=== PATIENT | female | born 1990 | race Caucasian/White ===

== ENCOUNTER 2017-01-15 16:17 | Emergency (ER) | payer OTHER, MEDICAID ==
[2017-01-15 16:29] VITALS: BP 107/72
--- NOTE | 2017-01-15 16:52 | ER Document Report ---
ED Medical Screen (RME) - General Chief Complaint: Bloody Stools Stated Complaint: BLOOD IN STOOLS Time Seen by Provider: 01/15/17 16:50 Notes: Patient states she is having pressure around her rectum and has had bright red blood from the rectum today. She states she has had very little stool today but copious amounts of bright red blood. She denies any black or tarry stools. She did not have any bleeding prior to today. She states when she is she did have a history of easy bleeding secondary to thrombocytopenia. However she states she never had any treatment for this. Patient has had some mild abdominal cramping. No vaginal discharge or bleeding. No urinary problems. She has not been lightheaded or dizzy. She also states she has been unable to get a primary care physician so she has had her Mirena contraceptive in for approximately 5 years. - Related Data Allergies/Adverse Reactions: No Known Allergies Allergy (Unverified 01/15/17 16:27) Past Medical History Renal/ Medical History: Denies: Hx Peritoneal Dialysis Physical Exam - Vital signs Vitals: Temp Pulse BP Pulse Ox 98.4 F 94 107/72 99 01/15/17 16:27 01/15/17 16:27 01/15/17 16:27 01/15/17 16:27 Course - Vital Signs Vital signs: Temp Pulse Resp BP Pulse Ox 98.4 F 94 107/72 99 01/15/17 16:27 01/15/17 16:27 01/15/17 16:27 01/15/17 16:27
[2017-01-15 17:48] LABS: ABSOLUTE BASOPHILS # (AUTO) 0.1 10^3/uL (0.0-0.2); ABSOLUTE EOSINOPHILS # (AUTO) 0.1 10^3/uL (0.0-0.6); ABSOLUTE LYMPHOCYTES (AUTO) 1.7 10^3/uL (0.5-4.7); ABSOLUTE MONOCYTES (AUTO) 0.4 10^3/uL (0.1-1.4); ABSOLUTE NEUT (AUTO) 3.3 10^3/uL (1.7-8.2); BASOPHILS % (AUTO) 1.1 % (0-2); EOSINOPHILS % (AUTO) 1.6 % (0-6); HEMOGLOBIN 15.8 g/dL (12.0-15.5); HGB HCT DIFFERENCE 2.4; LYMPHOCYTES % (AUTO) 29.6 % (13-45); MEAN CORPUSCULAR HEMOGLOBIN 31.8 pg (27.0-33.4); MEAN CORPUSCULAR VOLUME 91 fl (80-97); MONOCYTES % (AUTO) 7.6 % (3-13); RED BLOOD COUNT 4.95 10^6/uL (3.72-5.28); SEGMENTED NEUTROPHILS % (AUTO) 60.1 % (42-78); WHITE BLOOD COUNT 5.6 10^3/uL (4.0-10.5)
[2017-01-15 17:50] LABS: APPEARANCE,URINE SLIGHTLY-CLOUDY; BILIRUBIN,URINE NEGATIVE (NEGATIVE); GLUCOSE, URINE NEGATIVE (NEGATIVE); KETONES,URINE NEGATIVE (NEGATIVE); LEUKOCYTE ESTERASE,URINE SMALL (NEGATIVE); NITRITE,URINE NEGATIVE (NEGATIVE); PROTEIN,URINE NEGATIVE (NEGATIVE); URINE SPECIFIC GRAVITY 1.019
[2017-01-15 18:04] LABS: ALANINE AMINOTRANSFERASE 25 U/L (9-52); ALBUMIN 4.7 g/dL (3.5-5.0); ALKALINE PHOSPHATASE 53 U/L (38-126); ANION GAP 12 (5-19); ASPARTATE AMINO TRANSFERASE 19 U/L (14-36); BILIRUBIN,DIRECT 0.3 mg/dL (0.0-0.4); BLOOD UREA NITROGEN 12 mg/dL (7-20); CALCIUM 9.9 mg/dL (8.4-10.2); CARBON DIOXIDE 30 mmol/L (22-30); CHLORIDE 102 mmol/L (98-107); CREATININE RESULT 0.73 mg/dL (0.52-1.25); GLUCOSE 88 mg/dL (75-110); POTASSIUM 4.3 mmol/L (3.6-5.0); SODIUM 143.7 mmol/L (137-145); TOTAL PROTEIN 7.8 g/dL (6.3-8.2)
--- NOTE | 2017-01-15 19:43 | ER Document Report ---
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 Patient states that the blood proceeded the stool. Patient states that she has issues with constipation and only has 2 bowel movements per month. Patient states that she was being seen by GI and had an endoscopy and colonoscopy performed which was unremarkable per patient. Patient states that she then lost her insurance and has not been back for further evaluation. Patient states that she was placed on a medication meant to aide peristalsis. patient states that otherwise she is eating and drinking without any difficulties. Patient states that she also has a history of internal hemorrhoids. Patient states that she does have pain at the rectal area, but no itching. Denies any recent illness or antibiotic use. Denies any drug allergies. Denies any headache, fever, URI, sore throat, chest pain, palpitations, syncope, cough, shortness of breath, wheeze, dyspnea, abdominal pain, nausea/vomiting/diarrhea, urinary retention, dysuria, hematuria, vaginal discharge/odor/bleeding, back pain, loss of control of bowel or bladder, numbness/tingling, saddle anesthesia, muscle paralysis/weakness, or rash. - Related Data Allergies/Adverse Reactions: No Known Allergies Allergy (Unverified 01/15/17 16:27) Past Medical History - Social History Smoking Status: Never Smoker Family History: Reviewed & Not Pertinent Renal/ Medical History: Denies: Hx Peritoneal Dialysis Review of Systems - Review of Systems Notes: REVIEW OF SYSTEMS: CONSTITUTIONAL : Denies fever, chills, or sweats. Denies recent illness. EENT: Denies eye, ear, throat, or mouth pain or symptoms. Denies nasal or sinus congestion or discharge. Denies throat, tongue, or mouth swelling or difficulty swallowing. CARDIOVASCULAR: Denies chest pain. Denies palpitations or racing or irregular heart beat. Denies ankle edema. RESPIRATORY: Denies cough, cold, or chest congestion. Denies shortness of breath, difficulty breathing, or wheezing. GASTROINTESTINAL: see hpi GENITOURINARY: Denies difficulty urinating, painful urination, burning, frequency, blood in urine, or discharge. FEMALE GENITOURINARY: Denies vaginal bleeding, heavy or abnormal periods, irregular periods. Denies vaginal discharge or odor. MUSCULOSKELETAL: Denies back or neck pain or stiffness. Denies joint pain or swelling. SKIN: Denies rash, lesions or sores. NEUROLOGICAL: Denies confusion or altered mental status. Denies passing out or loss of consciousness. Denies dizziness or lightheadedness. Denies headache. Denies weakness or paralysis or loss of use of either side. Denies problems with gait or speech. Denies sensory loss, numbness, or tingling. ALL OTHER SYSTEMS REVIEWED AND NEGATIVE. Dictation was performed using [employer] voice recognition software Physical Exam - Vital signs Vitals: Temp Pulse BP Pulse Ox 98.4 F 94 107/72 99 01/15/17 16:27 01/15/17 16:27 01/15/17 16:27 01/15/17 16:27 Notes: PHYSICAL EXAMINATION: GENERAL: Well-appearing, well-nourished and in no acute distress. a&ox4. Pt moving around w/o any discomfort. HEAD: Atraumatic, normocephalic. EYES: Pupils equal round and reactive to light, extraocular movements intact, sclera anicteric, conjunctiva are normal. ENT: Nares patent and without discharge. oropharynx clear without exudates. No tonsilar hypertrophy or erythema. Moist mucous membranes. No sinus tenderness. NECK: Normal range of motion, supple without lymphadenopathy LUNGS: Breath sounds clear to auscultation bilaterally and equal. No wheezes rales or rhonchi. HEART: Regular rate and rhythm without murmurs, rubs, gallops. ABDOMEN: Soft, nontender, nondistended abdomen. No guarding, no rebound. No masses appreciated. Normal bowel sounds present. No CVA tenderness bilaterally. Rectal: small nonthrombosed external hemorrhoid that is tender to touch. No obvious fissure. Tenderness elicited corresponds to pain described. No obvious blood noted on ORSA or impaction. Guiac obtained. Musculoskeletal: FROM to passive/active. Strength 5+/5. Extremities: No cyanosis, clubbing, or edema b/l. Peripheral pulses 2+. Capillary refill less than 3 seconds. NEUROLOGICAL: Normal speech, normal gait. Normal sensory, motor exams PSYCH: Normal mood, normal affect. SKIN: Warm, Dry, normal turgor, no rashes or lesions noted. Course - Re-evaluation Re-evalutation: 01/15/17 21:17 Patient is an afebrile, well-hydrated, 26-year-old female who presents to the ED with an external hemorrhoid. Vitals are stable. PE is otherwise unremarkable. CBC, CMP, urinalysis, urine unremarkable. Acute abdomen series was unremarkable for any acute pathology. There was no impaction on physical exam. Guaiac stool negative. Low suspicion/risk for acute appendicitis, bowel obstruction, acute cholecystitis, acute cholangitis, perforated diverticulitis, incarcerated hernia, pancreatitis, perforated ulcer, peritonitis, sepsis, pelvic inflammatory disease, ectopic , tubo- ovarian abscess, ovarian torsion, or other systemic emergent condition at this time. Patient is aware that her condition can change from initial presentation and she needs to monitor symptoms closely and seek medical attention if any acute changes. I will send her home with a prescription for anusol/Lido. Conservative measures otherwise for symptoms. Recheck with your PCM in 2-3 days. Consider consult with a barrel rifler button. Return to the ED with any worsening/concerning symptoms otherwise as reviewed in discharge. Patient is in agreement. - Vital Signs Vital signs: Temp Pulse Resp BP Pulse Ox 98.4 F 94 107/72 99 01/15/17 16:27 01/15/17 16:27 01/15/17 16:27 01/15/17 16:27 - Laboratory Result Diagrams: 01/15/17 17:20 01/15/17 17:20 Laboratory results interpreted by me: 01/15/17 01/15/17 17:20 17:20 Hgb 15.8 H Urine Blood SMALL H Urine Urobilinogen 4.0 H Ur Leukocyte Esterase SMALL H Discharge - Discharge Clinical Impression: External hemorrhoids without complication Condition: Stable Disposition: HOME, SELF-CARE Instructions: HC Hemorrhoid Cream ([facility]), Hemorrhoids ([facility]) Additional Instructions: Maintain adequate fluid and food intake Increase fiber intake tylenol if needed Monitor for any worsening symptoms Make sure you are staying hydrated enough to urinate and have normal BM's Recheck with your PCM in 2-3 days Consider consult with Gastroenterology for ongoing/worsening symptoms Return to the ED with any worsening symptoms and/or development of fever, headache, chest pain, palpitations, syncope, shortness of breath, trouble breathing, abdominal pain, n/v/d, blood in stool/urine, weakness, or other worsening symptoms that are concerning to you. Prescriptions: Hydrocortisone Acetate [Anusol Hc 25 mg Supp.rect] 1 supp.rect MD DAILY PRN #10 supp.rect PRN Reason: Referrals: KATIE LONG MD [ACTIVE STAFF] - Follow up as needed [facility] [Provider Group] - Follow up as needed
--- NOTE | 2017-01-15 20:14 | RADIOLOGY REPORT (SQ) ---
EXAM DESCRIPTION: ACUTE ABDOMEN SERIES COMPLETED DATE/TIME: 01/15/2017 7:54 pm REASON FOR STUDY: constipation COMPARISON: None. NUMBER OF VIEWS: Three views. TECHNIQUE: Frontal chest, supine abdomen and upright/decubitus abdomen radiographic images acquired. LIMITATIONS: None. FINDINGS: CHEST: Lungs clear of infiltrates. FREE AIR: None. No abnormal gas collections. BOWEL GAS PATTERN: Nonobstructive pattern. No dilated loops or air fluid levels. CALCIFICATIONS: No suspicious calcifications. HARDWARE: None in the abdomen. SOFT TISSUES: No gross mass or suggestion of organomegaly. BONES: No acute fracture. No worrisome bone lesions. OTHER: No other significant finding. IMPRESSION: NO RADIOGRAPHIC EVIDENCE FOR ACUTE ABDOMINAL DISEASE. TECHNICAL DOCUMENTATION: JOB ID: [id number] [employer]- All Rights Reserved
[2017-01-15] MEDS ORDERED: LIDOCAINE 2% JELLY 30 ML TUBE TOP ONE (20:39)
[2017-01-15] MEDS ORDERED: LIDOCAINE 2% VISCOUS SOLN 20 ML UDCUP PO ONE (20:54)
== END 2017-01-15 21:36 | disposition home or self-care (01) ==
LOC: ER 16:17
DX: K64.4 Residual hemorrhoidal skin tags (principal); K92.1 Melena; K59.00 Constipation, unspecified; K62.89 Other specified diseases of anus and rectum
CPT/HCPCS: 99283; 36415; 85025; 82272; 81025; 80053; 81001; 74022; J3490

== ENCOUNTER 2017-06-05 09:24 | Emergency (ER) | payer OTHER, MEDICAID ==
--- NOTE | 2017-06-05 10:09 | ER Document Report ---
HPI - HPI Patient complains to provider of: Sore throat body aches fever Onset: Other - 2 days Onset/Duration: Gradual Pain Level: 3 Context: 26-year-old female non-smoker son was diagnosed with strep on June 06 and she has developed body aches fever and sore throat. Occasional cough. No chest pain shortness of breath or abdominal pain. Associated Symptoms: None Exacerbated by: Other - Swallowing Relieved by: Denies - ROS ROS below otherwise negative: Yes Systems Reviewed and Negative: Yes All other systems reviewed and negative - REPRODUCTIVE LMP: mirena Past Medical History - General Information source: Patient - Social History Smoking Status: Never Smoker Frequency of alcohol use: None Drug Abuse: None Occupation: [employer] Lives with: Family Family History: Reviewed & Not Pertinent - Medical History Medical History: Negative Renal/ Medical History: Denies: Hx Peritoneal Dialysis Surgical Hx: Negative Vertical Provider Document - CONSTITUTIONAL Agree With Documented VS: Yes Exam Limitations: No Limitations General Appearance: No Apparent Distress - INFECTION CONTROL TRAVEL OUTSIDE OF THE [place] IN LAST 30 DAYS: No - HEENT HEENT: Normocephalic, Pharyngeal Erythema - minimal. negative: Tympanic Membrane Red - NECK Neck: Supple, Lymphadenopathy-Left - ant, Lymphadenopathy-Right - Anterior - RESPIRATORY Respiratory: Breath Sounds Normal, No Respiratory Distress O2 Sat by Pulse Oximetry: 100 - CARDIOVASCULAR Cardiovascular: Regular Rate, Regular Rhythm - MUSCULOSKELETAL/EXTREMETIES Musculoskeletal/Extremeties: MAEW - NEURO Level of Consciousness: Awake, Alert - DERM Integumentary: Warm, Dry, No Rash Course - Vital Signs Vital signs: Temp Pulse Resp BP Pulse Ox 98.6 F 93 18 107/73 100 06/05/17 09:38 06/05/17 09:38 06/05/17 09:38 06/05/17 09:38 06/05/17 09:38 Discharge - Discharge Clinical Impression: Sore throat Condition: Good Disposition: HOME, SELF-CARE Instructions: Acetaminophen, Anti-Inflammatory Medication ([facility]), Penicillin V K ([facility]) Additional Instructions: Plenty of fluids Penicillin until it is gone Tylenol Motrin If the rapid strep is negative they will do a throat culture the takes 48 hours to be resulted. Return to the emergency room if symptoms worsen Prescriptions: Ibuprofen [Motrin 800 mg Tablet] 800 mg PO Q8HP PRN #30 tablet PRN Reason: Penicillin V Potassium [Penicillin Vk 500 mg Tablet] 500 mg PO QID #40 tablet Forms: Return to Work
[2017-06-05 11:10] VITALS: BP 104/67
== END 2017-06-05 11:10 | disposition home or self-care (01) ==
LOC: ER 09:24
DX: J02.9 Acute pharyngitis, unspecified (principal); M79.1 Myalgia; R50.9 Fever, unspecified; R05 Cough
CPT/HCPCS: 87070; 87880; 99283

== ENCOUNTER 2017-08-07 22:15 | Emergency (ER) | payer MEDICAID, OTHER ==
--- NOTE | 2017-08-07 22:35 | ER Document Report ---
ED GI/ - General Chief Complaint: Abdominal Pain Stated Complaint: ABDOMINAL PAIN Time Seen by Provider: 08/07/17 22:35 Mode of Arrival: Ambulatory Information source: Patient TRAVEL OUTSIDE OF THE [place] IN LAST 30 DAYS: No - HPI Patient complains to provider of: Abdominal pain, Hematuria, Vaginal bleeding Onset: This morning Timing/Duration: Sudden Quality of pain: Cramping Severity at maximum: Severe Severity in ED: Mild Context: denies: Bad food, Lifting, Out of the country travel, , Recent trauma Location: LLQ, Left flank Vaginal bleeding (Compared to normal period): Heavier - ONE EPISODE, NOW RESOLVED Menstrual period history: Abnormal - HAS MERENA Sexual history: Active Associated symptoms: Hematuria, Nausea, Urinary urgency. denies: Chills, Diarrhea, Fever, Vomiting Exacerbated by: Denies Relieved by: Denies Similar symptoms previously: Yes - ONCE, WITH "RUPTURED CYST" Recently seen / treated by doctor: No - Related Data Allergies/Adverse Reactions: No Known Allergies Allergy (Unverified 01/15/17 16:27) Past Medical History - General Information source: Patient - Social History Smoking Status: Unknown if Ever Smoked Lives with: Spouse/Significant other Family History: Reviewed & Not Pertinent Patient has suicidal ideation: No Patient has homicidal ideation: No - Past Medical History Cardiac Medical History: Reports: None Pulmonary Medical History: Reports: None EENT Medical History: Reports: None Neurological Medical History: Reports: None Endocrine Medical History: Reports: None Renal/ Medical History: Reports: None. Denies: Hx Peritoneal Dialysis Malignancy Medical History: Reports: None GI Medical History: Reports: None Musculoskeltal Medical History: Reports None Psychiatric Medical History: Reports: None Surgical Hx: Negative Review of Systems - Review of Systems Constitutional: No symptoms reported EENT: No symptoms reported Cardiovascular: No symptoms reported Respiratory: No symptoms reported Gastrointestinal: See HPI Genitourinary: See HPI Female Genitourinary: See HPI Musculoskeletal: No symptoms reported Skin: No symptoms reported Neurological/Psychological: No symptoms reported Physical Exam - Vital signs Vitals: Temp Pulse BP Pulse Ox 99.0 F 76 112/73 99 08/07/17 22:30 08/07/17 22:30 08/07/17 22:30 08/07/17 22:30 Interpretation: No: Tachycardic, Tachypneic, Febrile - General General appearance: Appears well, Alert In distress: None - HEENT Head: Normocephalic Eyes: Normal Conjunctiva: Normal Ears: Normal Nasal: Normal Mouth/Lips: Normal Mucous membranes: Normal - Respiratory Respiratory status: No respiratory distress - Cardiovascular Rhythm: Regular - Abdominal Inspection: Normal Distension: No distension Bowel sounds: Hypoactive Tenderness: Tender - MILD, LLQ AND SP - Extremities General upper extremity: Normal inspection General lower extremity: Normal inspection - Neurological Neuro grossly intact: Yes Cognition: Normal Orientation: AAOx4 - Psychological Associated symptoms: Normal affect, Normal mood - Skin Skin Temperature: Warm Skin Moisture: Dry Skin Color: Normal Skin Turgor: Elastic Course - Vital Signs Vital signs: Temp Pulse Resp BP Pulse Ox 99.0 F 76 112/73 99 08/07/17 22:30 08/07/17 22:30 08/07/17 22:30 08/07/17 22:30 - Laboratory Result Diagrams: 08/07/17 23:00 08/07/17 23:00 Laboratory results interpreted by me: 08/07/17 08/07/17 23:00 23:11 AST 13 L Urine Protein 100 H Urine Blood LARGE H Urine Urobilinogen 2.0 H Discharge - Discharge Clinical Impression: Flank pain Hematuria Qualifiers: Hematuria type: gross Qualified Code(s): R31.0 - Gross hematuria Condition: Stable Disposition: HOME, SELF-CARE Instructions: Antinausea Medication ([facility]), Kidney Stone ([facility]), Oral Narcotic Medication ([facility]), Toradol Injection ([facility]) Additional Instructions: REST, DRINK PLENTY OF FLUIDS. YOU MAY TAKE ZOFRAN FOR NAUSEA CONTROL IF NEEDED. YOU MAY TAKE NORCO FOR PAIN CONTROL IF NEEDED. FOLLOW UP WITH YOUR PRIMARY CARE PROVIDER OR RETURN TO E.R. IF NOT IMPROVED IN 48 HOURS, OR SOONER IF YOU GET WORSE IN ANY WAY. Prescriptions: Hydrocodone/Acetaminophen [[place] 5-325 mg Tablet] 1 tab PO Q4HP PRN #14 tablet PRN Reason: For Pain
[2017-08-07] MEDS ORDERED: ONDANSETRON HCL INJ/PF 4 MG/2 ML SDV IV ONE (22:44)
[2017-08-07] MEDS ORDERED: HYDROMORPHONE HCL INJ/PF 2 MG/ML AMPULE IV ONE (22:44)
[2017-08-07 23:17] LABS: ABSOLUTE BASOPHILS # (AUTO) 0.1 10^3/uL (0.0-0.2); ABSOLUTE EOSINOPHILS # (AUTO) 0.1 10^3/uL (0.0-0.6); ABSOLUTE LYMPHOCYTES (AUTO) 2.2 10^3/uL (0.5-4.7); ABSOLUTE MONOCYTES (AUTO) 0.7 10^3/uL (0.1-1.4); ABSOLUTE NEUT (AUTO) 3.2 10^3/uL (1.7-8.2); BASOPHILS % (AUTO) 1.1 % (0-2); EOSINOPHILS % (AUTO) 2.3 % (0-6); HEMATOCRIT 41.3 % (36.0-47.0); HEMOGLOBIN 14.5 g/dL (12.0-15.5); LYMPHOCYTES % (AUTO) 35.4 % (13-45); MEAN CORPUSCULAR HEMOGLOBIN 31.9 pg (27.0-33.4); MEAN CORPUSCULAR HGB CONC 35.2 g/dL (32.0-36.0); MEAN CORPUSCULAR VOLUME 91 fl (80-97); MONOCYTES % (AUTO) 10.6 % (3-13); PLATELET COUNT 171 10^3/uL (150-450); RED BLOOD COUNT 4.56 10^6/uL (3.72-5.28); SEGMENTED NEUTROPHILS % (AUTO) 50.6 % (42-78); TOTAL CELLS COUNTED % (AUTO) 100 %; WHITE BLOOD COUNT 6.3 10^3/uL (4.0-10.5)
[2017-08-07 23:31] LABS: ALANINE AMINOTRANSFERASE 18 U/L (9-52); ALKALINE PHOSPHATASE 43 U/L (38-126); ANION GAP 8 (5-19); ASPARTATE AMINO TRANSFERASE 13 U/L (14-36); BILIRUBIN,DIRECT 0.2 mg/dL (0.0-0.4); BILIRUBIN,TOTAL 0.3 mg/dL (0.2-1.3); BLOOD UREA NITROGEN 11 mg/dL (7-20); CALCIUM 9.4 mg/dL (8.4-10.2); CARBON DIOXIDE 30 mmol/L (22-30); CHLORIDE 102 mmol/L (98-107); GLUCOSE 90 mg/dL (75-110); POTASSIUM 4.3 mmol/L (3.6-5.0); SODIUM 140.3 mmol/L (137-145); TOTAL PROTEIN 6.7 g/dL (6.3-8.2)
[2017-08-07 23:39] LABS: APPEARANCE,URINE CLOUDY; BILIRUBIN,URINE NEGATIVE (NEGATIVE); COLOR,URINE YELLOW; GLUCOSE, URINE NEGATIVE (NEGATIVE); KETONES,URINE NEGATIVE (NEGATIVE); LEUKOCYTE ESTERASE,URINE NEGATIVE (NEGATIVE); NITRITE,URINE NEGATIVE (NEGATIVE); PROTEIN,URINE 100 mg/dL (NEGATIVE); URINE SPECIFIC GRAVITY 1.026
[2017-08-08] MEDS ORDERED: KETOROLAC TROMETHAMINE INJ/PF 30 MG/1 ML SDV IV ONE (00:34)
[2017-08-08 01:27] VITALS: BP 110/70
--- NOTE | 2017-08-08 01:39 | RADIOLOGY REPORT (SQ) ---
US KIDNEYS / US RETROPERITONEAL and ULTRASOUND OF THE PELVIS Clinical history: Left flank pain with hematuria in a 26-year-old female. Comparison: None available. Technique: Ultrasound of the kidneys: Multiple sonographic images are taken of the kidneys and bladder using both grayscale and color Doppler. Ultrasound pelvis: Grayscale and color Doppler is performed of the pelvis using a transvaginal probe. Findings: ULTRASOUND OF THE KIDNEYS: Right kidney: The right kidney measures 10.7 x 5.1 x 5.2 cm. No hydronephrosis nor obstructing stone. Blood flow to the right kidney is within normal limits. Left kidney: The left kidney measures 10.4 x 5.5 x 4.1 cm. No hydronephrosis nor obstructing stone. Bladder: The bladder is only partially distended. Bilateral ureteral jets are visualized. ULTRASOUND PELVIS: Uterus: The cervix is closed measuring 2.7 cm. The uterus measures 8.8 x 5.1 x 5.9 cm. An IUD is seen overlying the endometrium. The endometrium measures 4 mm. No abnormal blood flow. Right ovary: The right ovary measures 3.4 x 4.2 x 4.6 m. Within the right ovary there is an anechoic area consistent with a cyst that measures 3.5 x 2.6 x 2.4 cm. No further follow-up is needed. Blood flow is demonstrated to the right ovary with both arterial and venous flow. Left ovary: The left ovary measures 2.5 x 4.7 x 2.5 cm. Arterial and venous blood flow is demonstrated. Impression: Ultrasound of the kidneys: Unremarkable ultrasound of the kidneys and bladder. Ultrasound pelvis: 1. IUD overlying the endometrium with a right ovarian cyst. No follow-up necessary as per guidelines below. 2. Otherwise unremarkable pelvic ultrasound. Recommendations for simple cyst1,2 Pre-menopause3 (< 50 yrs if LMP unknown): <5 cm: No f/u necessary >5cm - <10 cm: US f/u 6-12 weeks >10 cm: Prompt US 1. Recommendations based upon the 2013 ACR White Paper for the Management of Adnexal Incidental Findings, J Am Dorinda Radiol 2013;10:675-681 2. Excludes normal/benign findings such as ovarian calcifications w/o associated non-calcified mass, corpus lutein cyst, previously characterized cyst and cyst with documented stability in size and appearance for 2 years. 3. Includes cysts with layering hemorrhage 4. If internal hemorrhage suspected in cyst, US f/u 6-12 weeks
== END 2017-08-08 01:29 | disposition home or self-care (01) ==
LOC: ER 22:15
DX: R10.9 Unspecified abdominal pain (principal); R10.32 Left lower quadrant pain; R31.0 Gross hematuria; R11.0 Nausea; R39.15 Urgency of urination; N93.9 Abnormal uterine and vaginal bleeding, unspecified
CPT/HCPCS: 99284; 96374; 96375; 36415; 87086; 84703; 85025; 80053; 81001; 76770; 76830; 93976; J1885; J1170; J2405

== ENCOUNTER 2017-09-20 14:17 | Emergency (ER) | payer MEDICAID ==
[2017-09-20 15:42] LABS: APPEARANCE,URINE SLIGHTLY-CLOUDY; BILIRUBIN,URINE NEGATIVE (NEGATIVE); COLOR,URINE YELLOW; GLUCOSE, URINE NEGATIVE (NEGATIVE); KETONES,URINE 20 mg/dL (NEGATIVE); LEUKOCYTE ESTERASE,URINE TRACE (NEGATIVE); NITRITE,URINE NEGATIVE (NEGATIVE); PROTEIN,URINE NEGATIVE (NEGATIVE)
--- NOTE | 2017-09-20 16:35 | ER Document Report ---
ED GI/ - General Chief Complaint: Urinary Problem Stated Complaint: BLOOD IN URINE Time Seen by Provider: 09/20/17 15:22 Mode of Arrival: Ambulatory Information source: Patient Notes: Patient is a 26-year-old female with an IUD who presents to the ER today for abdominal cramping that began this morning, throughout her lower abdomen, worse on the left with blood in her urine that she also noticed this morning. Patient has a history of kidney stones and states that she does have some left flank pain but the pain is worse on the side and in the abdomen. Patient denies any burning with urination, fever, chills, nausea or vomiting. Patient states she has not had a menstrual cycle in 5 years. TRAVEL OUTSIDE OF THE [place] IN LAST 30 DAYS: No - Related Data Allergies/Adverse Reactions: No Known Allergies Allergy (Unverified 01/15/17 16:27) Past Medical History - General Information source: Patient - Social History Smoking Status: Unknown if Ever Smoked Family History: Reviewed & Not Pertinent Renal/ Medical History: Denies: Hx Peritoneal Dialysis Review of Systems - Review of Systems Constitutional: No symptoms reported EENT: No symptoms reported Cardiovascular: No symptoms reported Respiratory: No symptoms reported Gastrointestinal: See HPI Genitourinary: See HPI Female Genitourinary: See HPI Musculoskeletal: No symptoms reported Skin: No symptoms reported Hematologic/Lymphatic: No symptoms reported Neurological/Psychological: No symptoms reported Physical Exam - Vital signs Vitals: Temp Pulse Resp BP Pulse Ox 98.9 F 95 16 113/91 H 97 09/20/17 14:26 09/20/17 14:26 09/20/17 14:26 09/20/17 14:26 09/20/17 14:26 - Notes Notes: PHYSICAL EXAMINATION: GENERAL: Uncomfortable appearing, but in no acute distress. HEAD: Atraumatic, normocephalic. EYES: Pupils equal round and reactive to light, extraocular movements intact, sclera anicteric, conjunctiva are normal. NECK: Normal range of motion, supple without lymphadenopathy LUNGS: CTAB and equal. No wheezes rales or rhonchi. HEART: Regular rate and rhythm without murmurs ABDOMEN: Soft, suprapubic, left lower quadrant tenderness. No guarding, no rebound BACK: no vertebral tenderness, normal ROM GI/: Mild left CVA tenderness EXTREMITIES: Normal range of motion, no pitting edema. No cyanosis. NEUROLOGICAL: Cranial nerves grossly intact. Normal sensory/motor exams. PSYCH: Normal mood, normal affect. SKIN: Warm, Dry, normal turgor, no rashes or lesions noted Course - Re-evaluation Re-evalutation: 09/20/17 18:27 CT renal protocol reveals no active ureteral stones, multiple tiny kidney stones in both kidneys. Patient does have large hematuria and some white blood cells on her urinalysis today. Lab work is unremarkable with normal kidney function, negative test. Patient feels better after just sitting in the bed before any pain medication or fluids were given. Patient did receive IV Zofran and fluids here. We will send her home with Macrobid and ibuprofen. Pt describes menstrual type cramps to me. - Vital Signs Vital signs: Temp Pulse Resp BP Pulse Ox 98.9 F 95 16 113/91 H 97 09/20/17 14:26 09/20/17 14:26 09/20/17 14:26 09/20/17 14:26 09/20/17 14:26 - Laboratory Laboratory results interpreted by me: 09/20/17 15:05 Urine Ketones 20 H Urine Blood LARGE H Urine Urobilinogen 2.0 H Ur Leukocyte Esterase TRACE H Discharge - Discharge Clinical Impression: LLQ pain UTI (urinary tract infection) Qualifiers: Urinary tract infection type: site unspecified Hematuria presence: with hematuria Qualified Code(s): N39.0 - Urinary tract infection, site not specified Hematuria Qualifiers: Hematuria type: unspecified type Qualified Code(s): R31.9 - Hematuria, unspecified Condition: Stable Disposition: HOME, SELF-CARE Instructions: Nitrofurantoin ([facility]), Urinary Tract Infection ([facility]) Additional Instructions: Return immediately for any new or worsening symptoms. Follow up with primary care provider, call tomorrow to make followup appointment. Drink plenty of fluids. Prescriptions: Ibuprofen [Motrin 800 mg Tablet] 800 mg PO Q8H PRN #30 tab PRN Reason: Nitrofurantoin/Nitrofuran Mac [Macrobid 100 mg Capsule] 1 tab PO BID #20 capsule Forms: Return to Work
[2017-09-20] MEDS ORDERED: CEFTRIAXONE INJ 1000 MG VIAL IV ONE (16:36)
[2017-09-20] MEDS ORDERED: HYDROMORPHONE HCL INJ/PF 2 MG/ML AMPULE IV ONE (16:38)
[2017-09-20] MEDS ORDERED: NORMAL SALINE 1000 ML 1,000 ML IV ONE (16:38)
--- NOTE | 2017-09-20 17:23 | RADIOLOGY REPORT (SQ) ---
EXAM DESCRIPTION: CT LTD RENAL STONE PROTOCOL ON COMPLETED DATE/TIME: 09/20/2017 5:12 pm REASON FOR STUDY: llq pain, hematuria COMPARISON: None. TECHNIQUE: CT scan of the abdomen and pelvis performed without intravenous or oral contrast. Images reviewed with lung, soft tissue, and bone windows. Reconstructed coronal and sagittal MPR images revi ewed. All images stored on PACS. All CT scanners at this facility use dose modulation, iterative reconstruction, and/or weight based d osing when appropriate to reduce radiation dose to as low as reasonably achievable (ALARA). [facility]: Dose Right [facility]: CareDose [facility]: Dose Right [facility]: Teradose 4D [facility]: Smart [employer] RADIATION DOSE: CT Rad equipment meets quality standard of care and radiation dose reduction techniq ues were employed. CTDIvol: 4.9 mGy. DLP: 251 mGy-cm.mGy. LIMITATIONS: None. FINDINGS: LOWER CHEST: No significant findings. No nodules or infiltrates. NON-CONTRASTED LIVER, SPLEEN, ADRENALS: Evaluation limited by lack of IV contrast. No identified sign ificant masses. PANCREAS: No masses. No peripancreatic inflammatory changes. GALLBLADDER: No identified stones by CT criteria. No inflammatory changes to suggest cholecystitis. RIGHT KIDNEY AND URETER: No suspicious masses. Assessment limited by lack of IV contrast. Tiny calc terri in the mid and upper pole calyces. No hydronephrosis or hydroureter. LEFT KIDNEY AND URETER: No suspicious masses. Assessment limited by lack of IV contrast. Tiny calcu li in the mid and upper pole calices. No hydronephrosis or hydroureter. AORTA AND RETROPERITONEUM: No aneurysm. No retroperitoneal masses or adenopathy. BOWEL AND PERITONEAL CAVITY: No obvious masses or inflammatory changes. No free fluid. APPENDIX: Normal. PELVIS, BLADDER, AND ABDOMINAL WALL:No abnormal masses. IUD in the uterus. No free fluid. Bladder n ormal. BONES: No significant findings. OTHER: No other significant finding. IMPRESSION: TINY NONOBSTRUCTING CALYCEAL CALCULI IN BOTH KIDNEYS. NO URETERAL CALCULI. NO OTHER SI GNIFICANT OR ACUTE PROCESS IN THE ABDOMEN OR PELVIS. COMMENT: Quality ID # [id number]: Final reports with documentation of one or more dose reduction techniques (e.g., Automated exposure control, adjustment of the mA and/or kV according to patient size, use of iterative reconstruction technique) TECHNICAL DOCUMENTATION: JOB ID: [id number] [employer]- All Rights Reserved Reading location - IP/workstation name: [email or web address]
[2017-09-20 19:07] VITALS: BP 104/69
== END 2017-09-20 19:00 | disposition home or self-care (01) ==
LOC: ER 14:17
DX: N39.0 Urinary tract infection, site not specified (principal); R31.0 Gross hematuria; N20.0 Calculus of kidney; Z97.5 Presence of (intrauterine) contraceptive device
CPT/HCPCS: 99284; 51701; 96375; 96365; 87086; 81025; 81001; 76380; J1170; J0696; J7030

== ENCOUNTER 2017-10-21 20:22 | Emergency (ER) | payer MEDICAID ==
[2017-10-21 21:24] LABS: APPEARANCE,URINE SLIGHTLY-CLOUDY; BILIRUBIN,URINE NEGATIVE (NEGATIVE); COLOR,URINE YELLOW; GLUCOSE, URINE NEGATIVE (NEGATIVE); KETONES,URINE TRACE mg/dL (NEGATIVE); LEUKOCYTE ESTERASE,URINE MODERATE (NEGATIVE); NITRITE,URINE NEGATIVE (NEGATIVE); PROTEIN,URINE NEGATIVE (NEGATIVE)
--- NOTE | 2017-10-21 22:31 | ER Document Report ---
ED Medical Screen (RME) - General Chief Complaint: Urinary Problem Stated Complaint: ABDOMINAL PAIN Time Seen by Provider: 10/21/17 22:29 Mode of Arrival: Wheelchair Information source: Patient Notes: Patient is an otherwise healthy 26-year-old female who presents with chief complaint of bilateral low back pain and bilateral flank pain. Patient reports she was seen here approximately 1 month ago, diagnosed with multiple kidney stones bilaterally, and reports that she has not gotten any better. Patient reports that she has seen her primary care doctor and "nobody is doing anything ". Patient is taking Flomax daily. Patient unsure if she has passed kidney stones. Patient does report blood in her urine. Exam: CVA tenderness to left side. Mild tenderness to palpation to low abdomen bilaterally. I have greeted and performed a rapid initial assessment of this patient. A comprehensive ED assessment and evaluation of the patient, analysis of test results and completion of the medical decision making process will be conducted by additional ED providers. Dictation of this chart was performed using voice recognition software; therefore, there may be some unintended grammatical errors. TRAVEL OUTSIDE OF THE [place] IN LAST 30 DAYS: No - Related Data Allergies/Adverse Reactions: No Known Allergies Allergy (Unverified 01/15/17 16:27) Past Medical History Renal/ Medical History: Reports: Hx Kidney Stones. Denies: Hx Peritoneal Dialysis Physical Exam - Vital signs Vitals: Temp Pulse Resp BP Pulse Ox 98.2 F 85 18 124/87 H 96 10/21/17 21:03 10/21/17 21:03 10/21/17 21:03 10/21/17 21:03 10/21/17 21:03 Course - Vital Signs Vital signs: Temp Pulse Resp BP Pulse Ox 98.2 F 85 18 124/87 H 96 10/21/17 21:03 10/21/17 21:03 10/21/17 21:03 10/21/17 21:03 10/21/17 21:03 - Laboratory Laboratory results interpreted by me: 10/21/17 21:09 Urine Ketones TRACE H Urine Blood MODERATE H Urine Urobilinogen 4.0 H Ur Leukocyte Esterase MODERATE H
[2017-10-21 23:15] LABS: ABSOLUTE BASOPHILS # (AUTO) 0.1 10^3/uL (0.0-0.2); ABSOLUTE EOSINOPHILS # (AUTO) 0.1 10^3/uL (0.0-0.6); ABSOLUTE MONOCYTES (AUTO) 0.5 10^3/uL (0.1-1.4); BASOPHILS % (AUTO) 1.2 % (0-2); EOSINOPHILS % (AUTO) 1.5 % (0-6); HEMATOCRIT 43.8 % (36.0-47.0); LYMPHOCYTES % (AUTO) 35.1 % (13-45); MEAN CORPUSCULAR HEMOGLOBIN 31.4 pg (27.0-33.4); MEAN CORPUSCULAR HGB CONC 34.2 g/dL (32.0-36.0); MEAN CORPUSCULAR VOLUME 92 fl (80-97); MONOCYTES % (AUTO) 9.3 % (3-13); PLATELET COUNT 212 10^3/uL (150-450); RED BLOOD COUNT 4.77 10^6/uL (3.72-5.28); RED CELL DISTRIBUTION WIDTH 12.9 % (11.5-14.0); SEGMENTED NEUTROPHILS % (AUTO) 52.9 % (42-78); TOTAL CELLS COUNTED % (AUTO) 100 %; WHITE BLOOD COUNT 5.6 10^3/uL (4.0-10.5)
[2017-10-21 23:26] LABS: ALANINE AMINOTRANSFERASE 23 U/L (9-52); ALBUMIN 4.3 g/dL (3.5-5.0); ALKALINE PHOSPHATASE 42 U/L (38-126); ANION GAP 12 (5-19); ASPARTATE AMINO TRANSFERASE 16 U/L (14-36); BILIRUBIN,DIRECT 0.2 mg/dL (0.0-0.4); BILIRUBIN,TOTAL 0.7 mg/dL (0.2-1.3); BLOOD UREA NITROGEN 10 mg/dL (7-20); CALCIUM 9.2 mg/dL (8.4-10.2); CARBON DIOXIDE 27 mmol/L (22-30); CHLORIDE 101 mmol/L (98-107); GLUCOSE 85 mg/dL (75-110); LIPASE 88.9 U/L (23-300); SODIUM 140.2 mmol/L (137-145); TOTAL PROTEIN 6.9 g/dL (6.3-8.2)
[2017-10-22] MEDS ORDERED: ONDANSETRON ODT 4 MG TAB (6 TAB/ER DISP) PO PRN (01:47)
[2017-10-22] MEDS ORDERED: CEPHALEXIN 500 MG CAPSULE PO ONE (01:47)
[2017-10-22] MEDS ORDERED: HYDROCODONE/ACETAMINOPHEN 5-325 MG (6 TAB/ER DISP) PO PRN (01:47)
--- NOTE | 2017-10-22 01:50 | ER Document Report ---
ED General - General Chief Complaint: Urinary Problem Stated Complaint: ABDOMINAL PAIN Time Seen by Provider: 10/21/17 22:29 Mode of Arrival: Wheelchair Notes: Patient is a 26-year-old female with past medical history recurrent nephrolithiasis who presents with 5 days of bilateral flank pain, urinary hesitancy, dysuria and a feeling of incomplete bladder emptying. She has also noted hematuria at home. She states that this feels similar to when she was last seen for possible kidney stones at which time she was noted to have very tiny bilateral nephrolithiasis without any obstructing ureteral calculi. She has not followed up with urology. She has been taking tamsulosin without relief. She describes the pain in her bilateral flanks as a stabbing, constant , severe pain. Nothing improves or worsens her symptoms. She denies any fever or constitutional symptoms. TRAVEL OUTSIDE OF THE [place] IN LAST 30 DAYS: No - Related Data Allergies/Adverse Reactions: No Known Allergies Allergy (Unverified 01/15/17 16:27) Past Medical History - General Information source: Patient - Social History Smoking Status: Never Smoker Chew tobacco use (# tins/day): No Frequency of alcohol use: Rare Drug Abuse: None Lives with: Spouse/Significant other Family History: Reviewed & Not Pertinent Patient has suicidal ideation: No Patient has homicidal ideation: No Renal/ Medical History: Reports: Hx Kidney Stones. Denies: Hx Peritoneal Dialysis Review of Systems - Review of Systems Notes: Constitutional: Negative for fever. HENT: Negative for sore throat. Eyes: Negative for visual changes. Cardiovascular: Negative for chest pain. Respiratory: Negative for shortness of breath. Gastrointestinal: Positive for bilateral flank pain Genitourinary: Positive for dysuria. Musculoskeletal: Negative for back pain. Skin: Negative for rash. Neurological: Negative for headaches, weakness or numbness. 10 point ROS negative except as marked above and in HPI. Physical Exam - Vital signs Vitals: Temp Pulse Resp BP Pulse Ox 98.2 F 85 18 124/87 H 96 10/21/17 21:03 10/21/17 21:03 10/21/17 21:03 10/21/17 21:03 10/21/17 21:03 Interpretation: Normal Notes: PHYSICAL EXAMINATION: GENERAL: Well-appearing, well-nourished and in no acute distress. HEAD: Atraumatic, normocephalic. EYES: Pupils equal round and reactive to light, extraocular movements intact, sclera anicteric, conjunctiva are normal. ENT: nares patent, oropharynx clear without exudates. Moist mucous membranes. NECK: Normal range of motion, supple without lymphadenopathy LUNGS: Breath sounds clear to auscultation bilaterally and equal. No wheezes rales or rhonchi. HEART: Regular rate and rhythm without murmurs ABDOMEN: Soft, bilateral flank tenderness to palpation but no localized abdominal tenderness to palpation, normoactive bowel sounds. No guarding, no rebound. No masses appreciated. EXTREMITIES: Normal range of motion, no pitting or edema. No cyanosis. NEUROLOGICAL: No focal neurological deficits. Moves all extremities spontaneously and on command. PSYCH: Normal mood, normal affect. SKIN: Warm, Dry, normal turgor, no rashes or lesions noted. Course - Re-evaluation Re-evalutation: 10/22/17 01:48 Patient presents with 5 days of bilateral flank pain dysuria as well as urinary hesitancy. She has also noted area. She was seen on 09/20, the CT scan at that time which showed very tiny bilateral nephrolithiases without any evidence of obstructing ureteral calculi. Patient does not clinically appear to be having an acute nephrolithiasis or urolithiasis, quite comfortable in the bed, texting on her phone when I walk over to see her. She does note some dysuria as well as urinary hesitancy. Urine does suggest a possible urinary tract infection. Remainder abdominal exam is completely benign without any focal areas of tenderness to suggest acute appendicitis, ovarian torsion, tubo-ovarian abscess , biliary pathology or acute pink otitis. Labs are otherwise unremarkable. Urine culture has been sent. Patient has been started on cephalexin. Urology follow-up has been encouraged. At this time will discharge with return precautions and follow-up recommendations. Verbal discharge instructions given a the bedside and opportunity for questions given. Medication warnings reviewed. Patient is in agreement with this plan and has verbalized understanding of return precautions and the need for primary care follow-up in the next 24-72 hours. - Vital Signs Vital signs: Temp Pulse Resp BP Pulse Ox 98.0 F 79 16 108/73 98 10/22/17 02:19 10/22/17 02:19 10/22/17 02:19 10/22/17 02:19 10/22/17 02:19 - Laboratory Result Diagrams: 10/21/17 22:39 10/21/17 22:39 Laboratory results interpreted by me: 10/21/17 21:09 Urine Ketones TRACE H Urine Blood MODERATE H Urine Urobilinogen 4.0 H Ur Leukocyte Esterase MODERATE H Discharge - Discharge Clinical Impression: Bilateral flank pain, Dysuria Condition: Good Disposition: HOME, SELF-CARE Additional Instructions: Your urine shows findings consistent with a urinary tract infection. Please take all the antibiotics as directed even if your symptoms have improved. Please follow-up with urology at your earliest ability regarding her recurrent kidney stones. Please follow-up with your primary care physician as needed. Return to emergency room if you develop fever >101F, persistent vomiting, become lethargic, have severe pain in your sides, or any other symptoms that are concerning to you. Prescriptions: Cephalexin Monohydrate [Keflex 500 mg Capsule] 500 mg PO Q6H 5 Days capsule Referrals: JARED VELASQUEZ MD [NO LOCAL MD] - Follow up as needed GLENNA MCDONNELL MD [[facility]] - Follow up as needed
[2017-10-22 02:21] VITALS: BP 108/73
== END 2017-10-22 02:32 | disposition home or self-care (01) ==
LOC: ER 20:22
DX: R10.9 Unspecified abdominal pain (principal); R30.0 Dysuria; R39.11 Hesitancy of micturition; R31.0 Gross hematuria; Z87.442 Personal history of urinary calculi
CPT/HCPCS: 36415; 80053; 81001; 81025; 83690; 85025; 87086; 99283

== ENCOUNTER 2018-01-19 19:29 | Emergency (ER) | payer MEDICAID ==
[2018-01-19 19:48] VITALS: BP 114/72
--- NOTE | 2018-01-19 20:33 | ER Document Report ---
HPI - HPI Pain Level: 3 Notes: Patient is a 27-year-old female who presents with chief complaint of sore throat. Patient reports sore throat started at 3 AM and feels like she is swallowing knives. 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 Patient denies any fever. - CONSTITUTIONAL Constitutional: DENIES: Fever, Chills - EENT EENT: REPORTS: Sore Throat Past Medical History - General Information source: Patient - Social History Smoking Status: Never Smoker Frequency of alcohol use: None Drug Abuse: None Family History: Reviewed & Not Pertinent Patient has suicidal ideation: No Patient has homicidal ideation: No Renal/ Medical History: Reports: Hx Kidney Stones. Denies: Hx Peritoneal Dialysis Vertical Provider Document - CONSTITUTIONAL Notes: PHYSICAL EXAMINATION: GENERAL: Well-appearing, well-nourished and in no acute distress. HEAD: Atraumatic, normocephalic. EYES: Pupils equal round extraocular movements intact, conjunctiva are normal. ENT: Nares patent, mild erythema noted no exudates, to the tonsils. No tonsillar swelling, uvula midline, no evidence of peritonsillar abscess. NECK: Normal range of motion LUNGS: No respiratory distress Musculoskeletal: Normal range of motion NEUROLOGICAL: Normal speech, normal gait. PSYCH: Normal mood, normal affect. SKIN: Warm, Dry, normal turgor, no rashes or lesions noted. - INFECTION CONTROL TRAVEL OUTSIDE OF THE [place] IN LAST 30 DAYS: No Course - Re-evaluation Re-evalutation: Rapid strep is negative. Patient given instructions on supportive care. Patient discharged home in stable condition. - Vital Signs Vital signs: Temp Pulse Resp BP Pulse Ox 98.5 F 78 16 114/72 99 01/19/18 19:47 01/19/18 19:47 01/19/18 19:47 01/19/18 19:47 01/19/18 19:47 Discharge - Discharge Clinical Impression: Sore throat Condition: Stable Disposition: HOME, SELF-CARE Additional Instructions: SORE THROAT: Sore throats may be caused by viruses, bacteria, or fungi. Most are due to a virus, and must get better on their own. Bacterial sore throats, particularly those due to "strep," need treatment with antibiotics. If an antibiotic is prescribed, be sure to take the medication for a full 10 days. Failure to take the antibiotic can result in complications such as rheumatic fever. Sometimes, an injection of antibiotics is given instead of pills or liquid. This single "shot" is equal in effectiveness to the oral medication. To relieve symptoms, take acetaminophen for pain. Sip clear liquids frequently, or eat popsicles or ice chips. Anesthetic sprays or lozenges may help. Make sure the air in the room is not too dry. Avoid using decongestants or antihistamines. Call the doctor if there is no improvement in two days, or if you have difficulty breathing, increasing throat pain, high fever, rash, or frequent vomiting FOLLOW-UP CARE: If you have been referred to a physician for follow-up care, call the physician s office for an appointment as you were instructed or within the next two days. If you experience worsening or a significant change in your symptoms, notify the physician immediately or return to the Emergency Department at any time for re-evaluation. Please make you so much your rapid strep test done today was negative. We will be sending this down for a culture, we will call you if there are any abnormalities on this test. Please consider placing a cool mist humidifier at your bedside, drink heated fluids as this may help with your throat pain. You may also use cough drops or any [id number]-[id number] medicines. Tylenol or Motrin if you start to develop a fever.
== END 2018-01-19 20:53 | disposition home or self-care (01) ==
LOC: ER 19:29
DX: J02.9 Acute pharyngitis, unspecified (principal)
CPT/HCPCS: 87070; 87880; 99283

== ENCOUNTER 2018-06-11 08:18 | Emergency (ER) | payer MEDICAID ==
[2018-06-11] MEDS ORDERED: MORPHINE SULFATE 10 MG/ML INJ IV ONE (08:43)
[2018-06-11] MEDS ORDERED: NORMAL SALINE 1000 ML 1,000 ML IV ONE (08:43)
[2018-06-11] MEDS ORDERED: KETOROLAC TROMETHAMINE INJ/PF 30 MG/1 ML SDV IV ONE (08:43)
[2018-06-11] MEDS ORDERED: ONDANSETRON HCL INJ/PF 4 MG/2 ML SDV IV ONE (08:43)
--- NOTE | 2018-06-11 08:45 | ER Document Report ---
ED GI/ - General Chief Complaint: Flank Pain Stated Complaint: FLANK PAIN Time Seen by Provider: 06/11/18 08:33 Primary Care Provider: JOLANTA HIRSCH FNP-C [Primary Care Provider] - Follow up tomorrow Mode of Arrival: Ambulatory Information source: Patient Notes: Patient presents with a 5-day history of left lower quadrant abdominal cramping that will radiate through to her back. Patient does complain of nausea last night and urinary frequency. Patient states she does have a history of kidney stones and this does feel similar to when she has had that in the past. Patient states last bowel movement was 3 days ago and she is typically has constipation and takes amitiza to help with this. TRAVEL OUTSIDE OF THE [place] IN LAST 30 DAYS: No - HPI Patient complains to provider of: Abdominal pain, Flank pain. No: Vomiting Onset: Other - 5 days Timing/Duration: Worse Quality of pain: Sharp Pain Level: 4 Location: LLQ, Left flank Vaginal bleeding (Compared to normal period): None Sexual history: Active Associated symptoms: Nausea, Urinary frequency. denies: Dizzy, Fever, Urinary hesitancy, Urinary retention, Urinary urgency, Vomiting Exacerbated by: Denies Relieved by: Denies Similar symptoms previously: Yes Recently seen / treated by doctor: No - Related Data Allergies/Adverse Reactions: tamsulosin [From Flomax] Allergy (Verified 06/11/18 08:22) Past Medical History - General Information source: Patient - Social History Smoking Status: Never Smoker Frequency of alcohol use: None Drug Abuse: None Occupation: None Lives with: Family Family History: Reviewed & Not Pertinent Renal/ Medical History: Reports: Hx Kidney Stones. Denies: Hx Peritoneal Dialysis Psychiatric Medical History: Reports: Hx Bipolar Disorder - Patient disputes this diagnosis Past Surgical History: Reports: Hx Oral Surgery Review of Systems - Review of Systems Constitutional: No symptoms reported. denies: Fever EENT: No symptoms reported Cardiovascular: No symptoms reported. denies: Chest pain Respiratory: No symptoms reported. denies: Cough, Short of breath Gastrointestinal: Abdominal pain, Nausea. denies: Diarrhea, Vomiting, Poor appetite Genitourinary: Frequency, Flank pain Female Genitourinary: No symptoms reported. denies: , Vaginal discharge, Vaginal bleeding Musculoskeletal: Back pain Skin: No symptoms reported Hematologic/Lymphatic: No symptoms reported Neurological/Psychological: No symptoms reported Physical Exam - Vital signs Vitals: Temp Pulse Resp BP Pulse Ox 98.6 F 111 H 16 122/74 100 06/11/18 08:22 06/11/18 08:22 06/11/18 08:22 06/11/18 08:22 06/11/18 08:22 - General General appearance: Appears well, Alert In distress: None - HEENT Head: Normocephalic, Atraumatic Eyes: Normal Conjunctiva: Normal Nasal: Normal Mouth/Lips: Normal Mucous membranes: Normal Neck: Normal, Supple. No: Lymphadenopathy - Respiratory Respiratory status: No respiratory distress Chest status: Nontender Breath sounds: Normal. No: Rales, Rhonchi, Stridor, Wheezing Chest palpation: Normal - Cardiovascular Rhythm: Tachycardia Heart sounds: S1 appreciated, S2 appreciated Murmur: No - Abdominal Inspection: Normal Distension: No distension Bowel sounds: Normal Tenderness: Tender - LLQ. No: Guarding Organomegaly: No organomegaly - Back Back: CVA tenderness - left - Extremities General upper extremity: Normal inspection, Normal ROM General lower extremity: Normal inspection, Normal ROM - Neurological Neuro grossly intact: Yes Cognition: Normal Dez Coma Scale Eye Opening: Spontaneous Dez Coma Scale Verbal: Oriented Dez Coma Scale Motor: [place] Coma Scale Total: 15 - Psychological Associated symptoms: Normal affect, Normal mood - Skin Skin Temperature: Warm Skin Moisture: Dry Skin Color: Normal Course - Re-evaluation Re-evalutation: 06/11/18 12:33 Patient reports recently finishing antibiotics to treat a UTI with Macrobid. Suspect treatment failure at this time given patient's flank pain symptoms with current UTI. No concern for obstructive uropathy at this time. Patient with normal renal function and afebrile. - Vital Signs Vital signs: Temp Pulse Resp BP Pulse Ox 98.4 F 92 16 94/58 L 100 06/11/18 13:45 06/11/18 13:45 06/11/18 13:45 06/11/18 13:45 06/11/18 13:45 - Laboratory Result Diagrams: 06/11/18 09:31 06/11/18 09:31 Laboratory results interpreted by me: 06/11/18 08:40 Urine Protein 30 H Urine Urobilinogen 2.0 H Ur Leukocyte Esterase LARGE H Labs- Entire Visit 06/11/18 06/11/18 06/11/18 08:40 09:31 09:31 WBC 5.8 RBC 4.33 Hgb 13.9 Hct 39.5 MCV 91 MCH 32.0 MCHC 35.1 RDW 12.6 Plt Count 151 Seg Neutrophils % 78.0 Lymphocytes % 13.0 Monocytes % 6.9 Eosinophils % 1.5 Basophils % 0.6 Absolute Neutrophils 4.5 Absolute Lymphocytes 0.8 Absolute Monocytes 0.4 Absolute Eosinophils 0.1 Absolute Basophils 0.0 Sodium 137.6 Potassium 3.7 Chloride 102 Carbon Dioxide 29 Anion Gap 7 BUN 10 Creatinine 0.68 Est GFR ( Amer) > 60 Est GFR (Non-Af Amer) > 60 Glucose 104 Calcium 9.0 Urine Color YELLOW Urine Appearance CLOUDY Urine pH 5.0 Ur Specific [place] 1.025 Urine Protein 30 H Urine Glucose (UA) NEGATIVE Urine Ketones NEGATIVE Urine Blood NEGATIVE Urine Nitrite NEGATIVE Urine Bilirubin NEGATIVE Urine Urobilinogen 2.0 H Ur Leukocyte Esterase LARGE H Urine WBC (Auto) 47 Urine RBC (Auto) 7 Urine Bacteria (Auto) TRACE Squamous Epi Cells Auto 18 Urine Mucus (Auto) MANY Urine Ascorbic Acid NEGATIVE Urine HCG, Qual NEGATIVE - Diagnostic Test Radiology reviewed: Reports reviewed Discharge - Discharge Clinical Impression: UTI (urinary tract infection) Qualifiers: Urinary tract infection type: site unspecified Hematuria presence: without he maturia Qualified Code(s): N39.0 - Urinary tract infection, site not specified Condition: Stable Disposition: HOME, SELF-CARE Instructions: Rocephin ([facility]), Urinary Anesthetic Agent ([facility]), Urinary Tract Infection ([facility]) Additional Instructions: Return immediately for any new or worsening symptoms Followup with your primary care provider, call tomorrow to make a followup appointment Urine culture is pending, we will call if you need any different treatment Return for any fever, increased pain, vomiting or any worrisome symptoms. Prescriptions: Cefdinir 300 mg PO BID #20 capsule Ondansetron HCl [Zofran 4 mg Tablet] 1 - 2 tab PO Q6 PRN #8 tablet PRN Reason: Phenazopyridine HCl [Pyridium 200 mg Tablet] 200 mg PO TID #15 tablet Referrals: JOLANTA HIRSCH FNP-C [Primary Care Provider] - Follow up tomorrow
[2018-06-11 09:30] LABS: APPEARANCE,URINE CLOUDY; BILIRUBIN,URINE NEGATIVE (NEGATIVE); COLOR,URINE YELLOW; GLUCOSE, URINE NEGATIVE (NEGATIVE); KETONES,URINE NEGATIVE (NEGATIVE); LEUKOCYTE ESTERASE,URINE LARGE (NEGATIVE); NITRITE,URINE NEGATIVE (NEGATIVE); PROTEIN,URINE 30 mg/dL (NEGATIVE); URINE SPECIFIC GRAVITY 1.025
[2018-06-11 09:50] LABS: ABSOLUTE EOSINOPHILS # (AUTO) 0.1 10^3/uL (0.0-0.6); ABSOLUTE LYMPHOCYTES (AUTO) 0.8 10^3/uL (0.5-4.7); ABSOLUTE MONOCYTES (AUTO) 0.4 10^3/uL (0.1-1.4); ABSOLUTE NEUT (AUTO) 4.5 10^3/uL (1.7-8.2); BASOPHILS % (AUTO) 0.6 % (0-2); EOSINOPHILS % (AUTO) 1.5 % (0-6); HEMATOCRIT 39.5 % (36.0-47.0); HEMOGLOBIN 13.9 g/dL (12.0-15.5); MEAN CORPUSCULAR HGB CONC 35.1 g/dL (32.0-36.0); MEAN CORPUSCULAR VOLUME 91 fl (80-97); MONOCYTES % (AUTO) 6.9 % (3-13); PLATELET COUNT 151 10^3/uL (150-450); RED BLOOD COUNT 4.33 10^6/uL (3.72-5.28); RED CELL DISTRIBUTION WIDTH 12.6 % (11.5-14.0); TOTAL CELLS COUNTED % (AUTO) 100 %; WHITE BLOOD COUNT 5.8 10^3/uL (4.0-10.5)
[2018-06-11 10:08] LABS: ANION GAP 7 (5-19); BLOOD UREA NITROGEN 10 mg/dL (7-20); CARBON DIOXIDE 29 mmol/L (22-30); CHLORIDE 102 mmol/L (98-107); GLUCOSE 104 mg/dL (75-110); POTASSIUM 3.7 mmol/L (3.6-5.0); SODIUM 137.6 mmol/L (137-145)
--- NOTE | 2018-06-11 12:16 | RADIOLOGY REPORT (SQ) ---
EXAM DESCRIPTION: U/S RETROPERITON (RENAL/AORTA) COMPLETED DATE/TIME: 06/11/2018 11:59 am REASON FOR STUDY: L flank/L abd pain, hx stones COMPARISON: 08/08/2017 TECHNIQUE: Dynamic and static grayscale images acquired of the kidneys and bladder and recorded on P ACS. Additional selected color Doppler and spectral images recorded. LIMITATIONS: None. FINDINGS: RIGHT KIDNEY: Normal size, 10.5 cm. . Normal echogenicity. No solid or suspicious masses. No hydronephrosis. No calcifications. LEFT KIDNEY: Normal size, 9.9 cm. . Normal echogenicity. No solid or suspicious masses. No hydronep hrosis. No calcifications. BLADDER: Bilateral ureteral jets. No masses. OTHER FINDINGS: No other significant finding. IMPRESSION: NORMAL RENAL AND BLADDER ULTRASOUND. TECHNICAL DOCUMENTATION: JOB ID: [id number] [employer]- All Rights Reserved Reading location - IP/workstation name: [email or web address]
[2018-06-11] MEDS ORDERED: CEFTRIAXONE 1 GM/D5W RTU 1 GM/50 ML RTUPB IV ONE (12:17)
[2018-06-11 13:46] VITALS: BP 94/58
== END 2018-06-11 13:46 | disposition home or self-care (01) ==
LOC: ER 08:18
DX: N39.0 Urinary tract infection, site not specified (principal); K59.00 Constipation, unspecified; R10.32 Left lower quadrant pain; R11.0 Nausea; R35.0 Frequency of micturition; Z87.442 Personal history of urinary calculi; Z88.8 Allergy status to other drugs, medicaments and biological substances
CPT/HCPCS: 36415; 87086; 85025; 81025; 80048; 81001; 76770; J1885; J2270; J2405; J7030; J0696

== ENCOUNTER 2019-03-10 10:30 | Emergency (ER) | payer SELFPAY ==
[2019-03-10] MEDS ORDERED: LORATADINE 10 MG TABLET PO ONE (10:48)
--- NOTE | 2019-03-10 10:48 | ER Document Report ---
ED ENT - General Chief Complaint: Cold Symptoms Stated Complaint: VOMITING Time Seen by Provider: 03/10/19 10:42 Primary Care Provider: JOLANTA HIRSCH FNP-C [Primary Care Provider] - Follow up as needed Mode of Arrival: Ambulatory Information source: Patient Notes: 28-year-old female presents to ED for complaint of dry cough x5 days. She states now she is got a lot of mucus and when she lays her head down she wakes up with so much mucus she has to throw up. She cannot lay flat on the bed due to the amount of mucus. She states she has tried Mucinex and this has not helped. Patient is alert oriented respirations regular nonlabored speaking in full sentences. He denies use of smoke alcohol or illicit drugs. She states she does not work. Patient is having cramping to the left upper abdomen. She states she states she crawls up when she tries to lay down and then she coughs causing it to cramp. Patient states she is 5 weeks . TRAVEL OUTSIDE OF THE [place] IN LAST 30 DAYS: No - HPI Patient complains to provider of: Nose problem, Throat problem Onset: Last week Onset/Duration: Gradual Quality of pain: Other - Ramping Severity: Moderate Pain Level: 2 Associated symptoms: Congestion, Cough, Runny nose, Sinus pain, Sinus drainage Similar symptoms previously: Yes Recently seen / treated by doctor: No - Related Data Allergies/Adverse Reactions: tamsulosin [From Flomax] Allergy (Verified 06/11/18 08:22) Past Medical History - General Information source: Patient - Social History Smoking Status: Never Smoker Frequency of alcohol use: None Drug Abuse: None Lives with: Family Family History: Reviewed & Not Pertinent - Past Medical History Cardiac Medical History: Reports: None Pulmonary Medical History: Reports: None EENT Medical History: Reports: None Neurological Medical History: Reports: None Endocrine Medical History: Reports: None Renal/ Medical History: Reports: Hx Kidney Stones Malignancy Medical History: Reports: None GI Medical History: Reports: None Musculoskeletal Medical History: Reports None Skin Medical History: Reports None Psychiatric Medical History: Reports: Hx Bipolar Disorder - Patient disputes this diagnosis Traumatic Medical History: Reports: None Infectious Medical History: Reports: None Past Surgical History: Reports: Hx Oral Surgery - Immunizations Immunizations up to date: Yes Hx Diphtheria, Pertussis, Tetanus Vaccination: Yes Review of Systems - Review of Systems Constitutional: No symptoms reported EENT: Nose congestion, Nose discharge, Sinus pressure, Sinus discharge Cardiovascular: No symptoms reported Respiratory: Cough Gastrointestinal: No symptoms reported, Vomiting Genitourinary: No symptoms reported Female Genitourinary: No symptoms reported Musculoskeletal: No symptoms reported Skin: No symptoms reported Hematologic/Lymphatic: No symptoms reported Neurological/Psychological: No symptoms reported Physical Exam - Vital signs Vitals: Temp Pulse Resp BP Pulse Ox 98.3 F 92 16 108/75 100 03/10/19 10:33 03/10/19 10:33 03/10/19 10:33 03/10/19 10:33 03/10/19 10:33 Interpretation: Normal - General General appearance: Appears well, Alert - HEENT Head: Normocephalic, Atraumatic Eyes: Normal Pupils: PERRL Sinus: Normal Nasal: Purulent discharge, Swelling Pharynx: Post nasal drainage. No: Erythema, Exudate Neck: Normal - Respiratory Respiratory status: No respiratory distress Chest status: Nontender Breath sounds: Nonproductive cough. No: Productive cough, Rales, Rhonchi, Stridor, Wheezing Chest palpation: Normal - Cardiovascular Rhythm: Regular Heart sounds: Normal auscultation Murmur: No - Abdominal Inspection: Normal Distension: No distension Bowel sounds: Normal Tenderness: Nontender. No: Tender Organomegaly: No organomegaly - Back Back: Normal, Nontender - Extremities General upper extremity: Normal inspection, Nontender, Normal color, Normal ROM, Normal temperature General lower extremity: Normal inspection, Nontender, Normal color, Normal ROM, Normal temperature, Normal weight bearing. No: Russ's sign - Neurological Neuro grossly intact: Yes Cognition: Normal Orientation: AAOx4 [place] Coma Scale Eye Opening: Spontaneous [place] Coma Scale Verbal: Oriented Dez Coma Scale Motor: Obeys Commands Dez Coma Scale Total: 15 Speech: Normal Motor strength normal: LUE, RUE, LLE, RLE Sensory: Normal - Psychological Associated symptoms: Normal affect, Normal mood - Skin Skin Temperature: Warm Skin Moisture: Dry Skin Color: Normal Course - Re-evaluation Re-evalutation: 03/10/19 12:01 Chest x-ray negative will discuss with patient and discharged home. - Vital Signs Vital signs: Temp Pulse Resp BP Pulse Ox 98.1 F 92 16 106/66 99 03/10/19 12:03 03/10/19 12:03 03/10/19 12:03 03/10/19 12:03 03/10/19 12:03 - Diagnostic Test Radiology reviewed: Image reviewed, Reports reviewed Discharge - Discharge Clinical Impression: URI (upper respiratory infection) Qualifiers: URI type: unspecified viral URI Qualified Code(s): J06.9 - Acute upper respiratory infection, unspecified Nausea & vomiting Qualifiers: Vomiting type: unspecified Vomiting Intractability: unspecified Qualified Code(s): R11.2 - Nausea with vomiting, unspecified Condition: Good Disposition: HOME-SNF (ED ONLY) Additional Instructions: UPPER RESPIRATORY ILLNESS: You have a viral infection of the respiratory passages -- a "cold." This common infection causes nasal congestion, drainage, and often sore throat and cough. It is highly contagious. The disease usually lasts about 10 to 14 days. There is no "cure" for the viral infection -- it must run its course. If there is a complication, such as bacterial infection in the nose, sinuses, middle ear, or bronchial tubes, antibiotics may be required. The antibiotics won't affect the virus. Drink plenty of fluids. A humidifier may help. An expectorant medication or decongestant may make you more comfortable. Use acetaminophen or ibuprofen for fever or aches. See the doctor if fever persists over two days, if there is any significant worsening of your symptoms, or if you simply fail to improve as expected. Can use Claritin or Benadryl during these are both safe Tylenol is safe for your symptoms and ibuprofen is not. You can use Flonase or saline spray or salt soda solution gargles for your drainage. These are safe in . Your chest x-ray does not show a pneumonia at this time. You can also use Reglan for your nausea it is safe in . Use every 6 hours as needed for nausea. Reglan (Metoclopramide) Reglan has been prescribed. This medicine affects the stomach and intestines. It can be used to treat nausea and vomiting, to prevent reflux of stomach acid up into the esophagus, or to increase the contractions of the stomach and intestines. It is often prescribed for esophagitis, and for paralysis of the stomach in diabetics. Reglan can cause either mild restlessness or drowsiness. You should contact the doctor at once if you become extremely restless, anxious, or cannot sleep, or if you develop uncontrollable motions of the lips, tongue, or jaw. Do not take alcohol with this medicine. Do not drive or operate machinery until you have been taking this medicine long enough to know how it affects you. Call the doctor if you develop abdominal pains, lightheadedness, black stool, or blood in the stool or vomitus. USE OF ACETAMINOPHEN (Tylenol): Acetaminophen may be taken for pain relief or fever control. It's much safer than aspirin, offering a wider range of "safe" dosages. It is safe during . Some brand names are Tylenol, Panadol, Datril, Anacin 3, Tempra, and Liquiprin. Acetaminophen can be repeated every four hours. The following are maximum recommended dosages: >89 pounds or adults 650 mg to 900 mg Acetaminophen can be repeated every four hours. Maximum dose not to exceed 4000 mg a day. FOLLOW-UP CARE: If you have been referred to a physician for follow-up care, call the physicians office for an appointment as you were instructed or within the next two days. If you experience worsening or a significant change in your symptoms, notify the physician immediately or return to the Emergency Department at any time for re-evaluation. Prescriptions: Metoclopramide HCl [Reglan] 10 mg PO Q6HP PRN #14 tablet PRN Reason: Referrals: JOLANTA HIRSCH FNP-C [Primary Care Provider] - Follow up as needed
--- NOTE | 2019-03-10 11:45 | RADIOLOGY REPORT (SQ) ---
EXAM DESCRIPTION: CHEST 2 VIEWS COMPLETED DATE/TIME: 03/10/2019 11:38 am REASON FOR STUDY: cough congestion COMPARISON: None. EXAM PARAMETERS: NUMBER OF VIEWS: two views TECHNIQUE: Digital Frontal and Lateral radiographic views of the chest acquired. RADIATION DOSE: NA LIMITATIONS: none FINDINGS: LUNGS AND PLEURA: No opacities, masses or pneumothorax. No pleural effusion. MEDIASTINUM AND HILAR STRUCTURES: No masses or contour abnormalities. HEART AND VASCULAR STRUCTURES: Heart normal size. No evidence for failure. BONES: No acute findings. HARDWARE: None in the chest. OTHER: No other significant finding. IMPRESSION: No focal consolidation or other evidence of acute cardiopulmonary process. TECHNICAL DOCUMENTATION: JOB ID: [id number] [employer]- All Rights Reserved Reading location - IP/workstation name: [email or web address]
[2019-03-10 12:04] VITALS: BP 106/66
== END 2019-03-10 12:14 ==
LOC: ER 10:30
DX: O26.891 Other specified pregnancy related conditions, first trimester (principal); J06.9 Acute upper respiratory infection, unspecified; O21.9 Vomiting of pregnancy, unspecified; R05 Cough; R10.12 Left upper quadrant pain; R09.81 Nasal congestion; J34.89 Other specified disorders of nose and nasal sinuses; R09.89 Other specified symptoms and signs involving the circulatory and respiratory systems; Z3A.01 Less than 8 weeks gestation of pregnancy
CPT/HCPCS: 71046; 99283

== ENCOUNTER → 2019-04-08 | Outpatient (CLI) | payer MEDICAID ==
--- NOTE | 2019-04-08 16:46 | RADIOLOGY REPORT (SQ) ---
EXAM DESCRIPTION: U/S [id number] TRNABD 1GES W/ODOP COMPLETED DATE/TIME: 04/08/2019 3:26 pm REASON FOR STUDY: (Z34.81)ENCOUNTER FOR SUPRVSN OF NORMAL , FIRST TRIMESTER Z34.81 ENCOUNT ER FOR SUPRVSN OF NORMAL , FIRST TRIM COMPARISON: None. TECHNIQUE: Transabdominal static and realtime grayscale images acquired of the pelvis. Additional se lected spectral and color Doppler images recorded. All images stored on PACs. bHCG: Not applicable. CLINICAL DATES: 9 week 2 day. LIMITATIONS: None. FINDINGS: FETUS: Single Living intrauterine . ULTRASOUND EGA: 9 week 4 day. ULTRASOUND RODOLFO: 11/07/2019. EFW: Not applicable less than 20 weeks. CRL: 2.78 cm. FHR: 182 beats per minute. SURVEY: No visualized anomalies. AMNIOTIC FLUID: Adequate amount. PLACENTA: Not yet developed due to early gestation. SUBCHORIONIC BLEED: No. SIZE OF BLEED: Not applicable. UTERUS: No masses. No anomalies. CERVICAL LENGTH: 3.1 cm. Closed. RIGHT ADNEXA: Ovary not identified due to poor acoustical window. No adnexal free fluid. No adnexal masses. LEFT ADNEXA: Ovary not identified due to poor acoustical window. No adnexal free fluid. No adnexal masses. FREE FLUID: None. OTHER: No other significant finding. IMPRESSION: LIVING INTRAUTERINE . EGA 9 WEEK 4 DAY. Trimester of : First trimester - 0 to 13 weeks. TECHNICAL DOCUMENTATION: JOB ID: [id number] [employer] ([email or web address] All Rights Reserved Reading location - IP/workstation name: [email or web address]
== END ==
LOC: RAD 14:48
PROVIDERS: ATTEND Midwife
DX: Z34.81 Encounter for supervision of other normal pregnancy, first trimester (principal); Z3A.09 9 weeks gestation of pregnancy
CPT/HCPCS: 76801

== ENCOUNTER 2019-04-22 19:49 | Emergency (ER) | payer MEDICAID ==
[2019-04-22] MEDS ORDERED: NORMAL SALINE 1000 ML 1,000 ML IV ONE ×2 (20:03→21:21)
[2019-04-22] MEDS ORDERED: METOCLOPRAMIDE HCL INJ/PF 10 MG/2 ML SDV IV ONE ×2 (20:05→21:21)
[2019-04-22] MEDS ORDERED: ACETAMINOPHEN 325 MG TABLET PO ONE (20:05)
[2019-04-22] MEDS ORDERED: DIPHENHYDRAMINE HCL 50 MG/ML VIAL IV ONE (20:05)
--- NOTE | 2019-04-22 20:05 | ER Document Report ---
ED Medical Screen (RME) - General Chief Complaint: Headache Stated Complaint: MIGRAINE Time Seen by Provider: 04/22/19 19:59 Primary Care Provider: GINGER MALDONADO CNM [Primary Care Provider] - Follow up as needed Mode of Arrival: Ambulatory Information source: Patient Notes: 28-year-old female presented to ED for complaint of a migraine times a week. She states she is 11 weeks . She is 3 para 2. She states the only medical history she has is headaches and kidney stones. She denies any surgeries. She does not smoke drink or use any illicit drugs. She does live with her family. She is alert oriented respirations regular and unlabored speaking in full sentences. I have greeted and performed a rapid initial assessment of this patient. A comprehensive ED assessment and evaluation of the patient, analysis of test results and completion of medical decision making process will be conducted by an additional ED providers. TRAVEL OUTSIDE OF THE [place] IN LAST 30 DAYS: No - HPI Onset: Last week - Related Data Allergies/Adverse Reactions: tamsulosin [From Flomax] Allergy (Verified 06/11/18 08:22) Past Medical History Renal/ Medical History: Reports: Hx Kidney Stones. Denies: Hx Peritoneal Dialysis Psychiatric Medical History: Reports: Hx Bipolar Disorder - Patient disputes this diagnosis Past Surgical History: Reports: Hx Oral Surgery - Immunizations Immunizations up to date: Yes Hx Diphtheria, Pertussis, Tetanus Vaccination: Yes Physical Exam - Vital signs Vitals: Temp Pulse Resp BP Pulse Ox 98.0 F 94 18 109/69 96 04/22/19 19:54 04/22/19 19:54 04/22/19 19:54 04/22/19 19:54 04/22/19 19:54 Course - Vital Signs Vital signs: Temp Pulse Resp BP Pulse Ox 98.0 F 94 18 109/69 96 04/22/19 19:54 04/22/19 19:54 04/22/19 19:54 04/22/19 19:54 04/22/19 19:54 Doctor's Discharge - Discharge Referrals: GINGER MALDONADO CNM [Primary Care Provider] - Follow up as needed
--- NOTE | 2019-04-22 21:30 | ER Document Report ---
ED General - General Chief Complaint: Headache Stated Complaint: MIGRAINE Time Seen by Provider: 04/22/19 19:59 Primary Care Provider: GINGER MALDONADO CNM [Primary Care Provider] - Follow up as needed Mode of Arrival: Ambulatory TRAVEL OUTSIDE OF THE [place] IN LAST 30 DAYS: No - HPI Notes: Ms. Madden is a 28-year-old female 3 para 2 at 11 weeks EGA presenting with complaint of persistent headache for 1 week. Patient initially told triage nurse this was "migraine" but on further questioning has really never been given a diagnosis of migraine and says that she rarely gets headaches. Onset of this headache was insidious. No trauma. No fever, chills or focal neurologic symptoms. She has had nausea without vomiting. Headache is aggravated by light and loud noises. This is described as initially bitemporal and now more generalized. She has had some intermittent spots and flashes of both visual raman. Patient has had 2 prior visits to the health department during this . Ultrasound performed 13 days ago showed single IUP at 9 weeks and 2 days gestation. Patient is presently taking a vitamin and is on no other medications. Past history of kidney stones and the patient was treated in the past with Flomax and apparently had some kind of an adverse reaction of this. No other known allergies. Patient experienced thrombocytopenia with both of her prior pregnancies. No other problems or complications with the 2 prior pregnancies. She is not had any blood work done during this . - Related Data Allergies/Adverse Reactions: tamsulosin [From Flomax] Allergy (Verified 06/11/18 08:22) Past Medical History - General Information source: Patient - Social History Smoking Status: Former Smoker Chew tobacco use (# tins/day): No Frequency of alcohol use: None Family History: Reviewed & Not Pertinent Patient has suicidal ideation: No Patient has homicidal ideation: No Renal/ Medical History: Reports: Hx Kidney Stones. Denies: Hx Peritoneal Dialysis Psychiatric Medical History: Reports: Hx Bipolar Disorder - Patient disputes this diagnosis Past Surgical History: Reports: Hx Section - x2, Hx Oral Surgery - Immunizations Immunizations up to date: Yes Hx Diphtheria, Pertussis, Tetanus Vaccination: Yes Review of Systems - Review of Systems Notes: Constitutional: Negative for fever. HENT: Negative for sore throat. Eyes: As per HPI. Cardiovascular: Negative for chest pain. Respiratory: Negative for shortness of breath. Gastrointestinal: As per HPI. Genitourinary: Negative for dysuria. Musculoskeletal: Negative for back pain. Skin: Negative for rash. Neurological: As per HPI. 10 point ROS negative except as marked above and in HPI. Physical Exam - Vital signs Vitals: Temp Pulse Resp BP Pulse Ox 98.0 F 94 18 109/69 96 04/22/19 19:54 04/22/19 19:54 04/22/19 19:54 04/22/19 19:54 04/22/19 19:54 - Notes Notes: GENERAL: Well-developed well-nourished appearing in no acute distress. SKIN: Good turgor no rashes. HEAD: Normocephalic atraumatic. EYES: PERRLA. EOMI. Conjunctivae and sclerae clear. EARS: CANALS AND TMS CLEAR. NOSE: CLEAR. MOUTH: Moist mucosa. Good dentition. No stridor or edema. No drooling. NECK: Supple. No masses or thyromegaly. No adenopathy. Carotids 2+ without bruits. No JVD. BACK: Symmetrical without tenderness. CHEST: Respirations unlabored. Breath sounds clear and symmetrical. HEART: Regular rhythm. No murmur gallop or rub. ABDOMEN: Soft nontender without masses, organomegaly or rebound. Bowel sounds normally active. No bruits. GENITALIA: Deferred. EXTREMITIES: No edema. No calf tenderness. Cap refill less than 1.5 seconds. Dorsalis pedis and posterior tibial pulses 3+ and symmetrical. NEUROLOGICAL: GCS 15. Alert and oriented x3. Normal gait. Fluent speech. Cranial nerves II through XII intact. Sensorimotor and cerebellar normal. Normal tone. PSYCHIATRIC: Appropriate affect. Course - Re-evaluation Re-evalutation: 04/22/19 21:30 Patient has been given Reglan and normal saline IV. We will shield her abdomen and do a noncontrast CT of the brain. I have also requested CBC, coags and comprehensive metabolic profile. 04/22/19 23:53 Headache resolved following administration of Reglan and IV saline. Platelet count is marginally low here at 147,000. I think is likely stable for outpatient follow-up. Unsure whether this is migraine or muscular contraction headache although I would favor migraine based on overall presentation. - Vital Signs Vital signs: Temp Pulse Resp BP Pulse Ox 98.0 F 94 18 109/69 96 04/22/19 19:54 04/22/19 19:54 04/22/19 19:54 04/22/19 19:54 04/22/19 19:54 - Laboratory Result Diagrams: 04/22/19 21:51 04/22/19 21:51 Laboratory results interpreted by me: 04/22/19 04/22/19 04/22/19 21:51 21:51 21:51 Plt Count 143 L APTT 22.8 L Sodium 134.7 L Creatinine 0.51 L Alkaline Phosphatase 31 L Total Protein 6.1 L Albumin 3.1 L Leukocyte Esterase Rfl 04/22/19 22:12 Plt Count APTT Sodium Creatinine Alkaline Phosphatase Total Protein Albumin Leukocyte Esterase Rfl SMALL H - Diagnostic Test Radiology reviewed: Reports reviewed Radiology results interpreted by me: 04/22/19 23:[address] per radiologist. Discharge - Discharge Clinical Impression: Headache, IUP at 11 weeks EGA Condition: Stable Disposition: HOME, SELF-CARE Instructions: Headache ([facility]) Additional Instructions: Headache The physician does not feel that the headache you are experiencing has a serious underlying cause. Most headaches are due to emotional stress, with resultant muscle tension (tension headache). Occasionally, headaches are secondary to changes in the blood vessels of the scalp (vascular headache and migraine headache). Sometimes, a headache is the first symptom of another developing illness, such as a viral infection. You have no evidence of stroke, bleeding, meningitis, or other serious cause of your headache. The treatment of headaches varies with the severity and cause of the pain. Not all headaches need pain shots. In fact, there is evidence that using narcotics for headaches may make them worse in the long run. The physician will determine the therapy that's in your best interest. If you develop a fever, if the headache is different from any you've previously experienced, or if the headache progressively worsens, then call your physician at once or go to the emergency room. Follow-up with your OB doctor this week and discuss your platelet count with him. Return here as needed for new or worsening symptoms: Pain that is worsening or unimproved Uncontrolled vomiting High fever or shaking chills Overall worsening Prescriptions: Naproxen 500 mg PO BID PRN 7 Days #14 tablet PRN Reason: Referrals: GINGER MALDONADO CNM [Primary Care Provider] - Follow up as needed
[2019-04-22 22:09] LABS: INTERNATIONAL RATION (INR) 0.97; PROTHROMBIN TIME 12.9 SEC (11.4-15.4)
[2019-04-22 22:10] LABS: ABSOLUTE BASOPHILS # (AUTO) 0.1 10^3/uL (0.0-0.2); ABSOLUTE EOSINOPHILS # (AUTO) 0.1 10^3/uL (0.0-0.6); ABSOLUTE LYMPHOCYTES (AUTO) 1.5 10^3/uL (0.5-4.7); ABSOLUTE MONOCYTES (AUTO) 0.7 10^3/uL (0.1-1.4); ABSOLUTE NEUT (AUTO) 4.4 10^3/uL (1.7-8.2); BASOPHILS % (AUTO) 0.8 % (0-2); EOSINOPHILS % (AUTO) 1.2 % (0-6); HEMATOCRIT 37.4 % (36.0-47.0); HEMOGLOBIN 12.9 g/dL (12.0-15.5); LYMPHOCYTES % (AUTO) 22.4 % (13-45); MEAN CORPUSCULAR HEMOGLOBIN 31.5 pg (27.0-33.4); MEAN CORPUSCULAR HGB CONC 34.4 g/dL (32.0-36.0); MEAN CORPUSCULAR VOLUME 92 fl (80-97); MONOCYTES % (AUTO) 10.8 % (3-13); PARTIAL THROMBOPLASTIN TIME 22.8 SEC (23.5-35.8); PLATELET COUNT 143 10^3/uL (150-450); RED BLOOD COUNT 4.09 10^6/uL (3.72-5.28); RED CELL DISTRIBUTION WIDTH 13.4 % (11.5-14.0); SEGMENTED NEUTROPHILS % (AUTO) 64.8 % (42-78); TOTAL CELLS COUNTED % (AUTO) 100 %; WHITE BLOOD COUNT 6.8 10^3/uL (4.0-10.5)
[2019-04-22 22:19] LABS: ALBUMIN 3.1 g/dL (3.5-5.0); ALKALINE PHOSPHATASE 31 U/L (38-126); ANION GAP 7 (5-19); ASPARTATE AMINO TRANSFERASE 17 U/L (14-36); BILIRUBIN,DIRECT 0.2 mg/dL (0.0-0.4); BILIRUBIN,TOTAL 0.3 mg/dL (0.2-1.3); BLOOD UREA NITROGEN 12 mg/dL (7-20); CALCIUM 8.8 mg/dL (8.4-10.2); CARBON DIOXIDE 23 mmol/L (22-30); CHLORIDE 105 mmol/L (98-107); GLUCOSE 89 mg/dL (75-110); TOTAL PROTEIN 6.1 g/dL (6.3-8.2)
[2019-04-22 22:54] LABS: AMORPHOUS SEDIMENT,URINE TRACE /HPF; APPEARANCE,URINE CLOUDY; BILIRUBIN,URINE NEGATIVE (NEGATIVE); COLOR,URINE YELLOW; GLUCOSE, URINE NEGATIVE (NEGATIVE); KETONES,URINE NEGATIVE (NEGATIVE); PROTEIN,URINE NEGATIVE (NEGATIVE); URINE SPECIFIC GRAVITY 1.014; UROBILINOGEN,URINE NEGATIVE mg/dL (<2.0)
--- NOTE | 2019-04-22 23:27 | RADIOLOGY REPORT (SQ) ---
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 COMPARISON: None available TECHNIQUE: Multiple axial contiguous images were obtained through the head without intravenous contrast administered. This exam was performed according to our departmental dose-optimization program, which includes automated exposure control, adjustment of the mA and/or KV according to the patient's size and/or use of iterative reconstruction technique. FINDINGS: The ventricles are within normal limits for size. Both orbits appear unremarkable. The mastoid air cells appear clear. The visualized paranasal sinuses appear clear. The calvarium is intact. No extra-axial fluid collection is seen. The [place]-white matter differentiation is within normal limits. No midline shift or mass effect is apparent. There are no findings to suggest acute intracranial hemorrhage. IMPRESSION: No acute intracranial hemorrhage is seen.
[2019-04-23 00:35] VITALS: BP 104/63
== END 2019-04-23 00:33 | disposition home or self-care (01) ==
LOC: ER 19:49
DX: O26.891 Other specified pregnancy related conditions, first trimester (principal); R51 Headache; H53.8 Other visual disturbances; Z3A.11 11 weeks gestation of pregnancy; Z79.899 Other long term (current) drug therapy; Z88.8 Allergy status to other drugs, medicaments and biological substances; Z87.891 Personal history of nicotine dependence; Z86.2 Personal history of diseases of the blood and blood-forming organs and certain disorders involving the immune mechanism
CPT/HCPCS: 99284; 96361; 96374; 96375; 36415; 85025; 85610; 85730; 80053; 81001; 70450; J3490; J1200; J2765; J7030

== ENCOUNTER 2019-09-30 19:53 | Outpatient (CLI) | payer MEDICAID ==
[2019-09-30 20:54] LABS: APPEARANCE,URINE CLEAR; BILIRUBIN,URINE NEGATIVE (NEGATIVE); COLOR,URINE YELLOW; GLUCOSE, URINE NEGATIVE (NEGATIVE); KETONES,URINE NEGATIVE (NEGATIVE); LEUKOCYTE ESTERASE,URINE SMALL (NEGATIVE); NITRITE,URINE NEGATIVE (NEGATIVE); PROTEIN,URINE NEGATIVE (NEGATIVE); URINE SPECIFIC GRAVITY 1.008
[2019-09-30 21:00] LABS: BACTERIA (WET MOUNT) 4+ BACTERIA SEEN; EPITHELIALS (WET MOUNT) 4+ EPITHELIALS SEEN; RBCS (WET MOUNT) 3+ RBCS SEEN; T.VAGINALIS (WET MOUNT) NO TRICHOMONAS SEEN; WBCS (WET MOUNT) 4+ WBCS SEEN; YEAST (WET MOUNT) NO YEAST SEEN
[2019-09-30 21:15] LABS: URINE AMPHETAMINES SCREEN NEGATIVE; URINE BARBITURATES SCREEN NEGATIVE; URINE BENZODIAZEPINES SCREEN NEGATIVE; URINE COCAINE SCREEN NEGATIVE; URINE MARIJUANA (THC) SCREEN NEGATIVE; URINE METHADONE SCREEN NEGATIVE; URINE PHENCYCLIDINE SCREEN NEGATIVE
[2019-09-30] MEDS ORDERED: ACETAMINOPHEN 325 MG TABLET PO ONE (21:32)
[2019-09-30] MEDS ORDERED: ONDANSETRON 4 MG TAB.RAPDIS PO ONE (21:32)
[2019-09-30] MEDS ORDERED: ONDANSETRON 4 MG TAB.RAPDIS ONE (21:33)
[2019-09-30] MEDS ORDERED: ACETAMINOPHEN 325 MG TABLET ONE (21:33)
[2019-09-30 22:24] LABS: CHLAM PCR NOT DETECTED (NOT DETECT)
--- NOTE | 2019-10-01 00:01 | Non Stress Test Report ---
Non Stress Test Datetime Report Generated by CPN: 10/01/2019 00:01 DEMOGRAPHIC EGA NST: 34.2 INDICATION Indication for Study (NST) Other: gestational age > 32 weeks VITAL SIGNS Temperature - NST: 98.4 Pulse - NST: 106 RESP - NST: 18 NBPSYS NST: 113 NBPDIA NST: 67 MONITORING Monitor Explained: Monitor Explained; Test Explained; Patient Verbalized Understanding Time on Monitor: 09/30/2019 20:13 Time off Monitor: 09/30/2019 23:13 NST Duration: 180 NST INTERVENTIONS NST Interventions: PO Hydration; IV Fluids; Reposition Patient Physician Notified NST: dr saavedra BABY A: [id number] BABY A Movement : Present Contraction Frequency : 2.5-5.5 FHR Baseline : 135 Accelerations : 15X15 Decelerations : None Variability : Moderate 6-25bpm NST Review: Meets Criteria for Reactive NST NST Review and Verified By : Aravind Rojas RN NST Results: Reactive NST REPORT Report Trigger: Send Report
== END 2019-09-30 23:32 | disposition home or self-care (01) ==
LOC: LC 19:53
PROVIDERS: ATTEND Student in an Organized Health Care Education/Training Program
DX: O47.03 False labor before 37 completed weeks of gestation, third trimester (principal); Z3A.34 34 weeks gestation of pregnancy; Z88.8 Allergy status to other drugs, medicaments and biological substances
CPT/HCPCS: 59025; 87210; 81001; 87081; 80307; 87491; 87591; 84112; J3490; S0119

== ENCOUNTER 2019-11-02 09:07 | Inpatient (IN) | payer MEDICAID ==
[2019-11-02 09:42] LABS: APPEARANCE,URINE CLEAR; BILIRUBIN,URINE NEGATIVE (NEGATIVE); COLOR,URINE YELLOW; GLUCOSE, URINE NEGATIVE (NEGATIVE); KETONES,URINE NEGATIVE (NEGATIVE); LEUKOCYTE ESTERASE,URINE NEGATIVE (NEGATIVE); NITRITE,URINE NEGATIVE (NEGATIVE); PROTEIN,URINE NEGATIVE (NEGATIVE); URINE SPECIFIC GRAVITY 1.009
[2019-11-02] MEDS ORDERED: RINGERS SOLUTION,LACTATED 1,000 ML IV PRN (09:49)
[2019-11-02] MEDS ORDERED: RINGERS SOLUTION,LACTATED 1,000 ML IV ONE (09:49)
[2019-11-02 10:07] LABS: URINE AMPHETAMINES SCREEN NEGATIVE; URINE BARBITURATES SCREEN NEGATIVE; URINE BENZODIAZEPINES SCREEN NEGATIVE; URINE COCAINE SCREEN NEGATIVE; URINE MARIJUANA (THC) SCREEN NEGATIVE; URINE METHADONE SCREEN NEGATIVE; URINE PHENCYCLIDINE SCREEN NEGATIVE
--- NOTE | 2019-11-02 10:23 | Admission Physical ---
Datetime Report Generated by CPN: 11/02/2019 10:22 CURRENT ADMISSION Chief Complaint: Uterine Contractions; Suspected Ruptured Membranes Indication for Induction: Not Applicable Admit Impression : No Active Labor; Ruptured Membranes Admit Plan: Admit to Unit Admit Plan- Other: Ruptured this am 0755, initially clear then the next gush was green tinged not in labor yet, but feeling contractions ALLERGIES Medication Allergies: Yes Medication Allergies: tamsulosin (06/11/2018) Latex: Unknown OBSTETRICAL HISTORY EDC: 11/09/2019 00:00 : 3 Para: 2 Term: 2 : 0 SAB: 0 IAB: 0 Ectopic: 0 Livin Cesareans: 0 VBACs: 0 Multiple Births: 0 Gestational Diabetes: Yes Rh Sensitization: No Incompetent Cervix: No TWAN: No Infertility: No ART Treatment: No Uterine Anomaly: No IUGR: No Hx Previous C/S: No Macrosomia: No Hx Loss/Stillborn: No PIH: No Hx : No Placenta Previa/Abruption: No Depression/PP Depression: No PTL/PROM: No Post Hemorrhage: No Current Procedures: Ultrasound; NST SEE RECORDS Alcohol: No Marijuana : No Cocaine: No Other Illicit Drugs: No Cigarettes: Never Smoker. 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 Surgery: No Heart Disease: No Hosp/Surgery: No Autoimmune Disorder: No Anesthetic Complications: No Kidney Disease: No Abnormal Pap Smear: No Neuro/Epilepsy: No Psychiatric Disorders: Yes Other Medical Diseases: No Hepatitis/Liver Disease: No Significant Family History: No Varicosities/Phlebitis: No Trauma/Violence : No Thyroid Dysfunction: No Medical History Comments: anemia, teeth extraction, GDM, anxiety, panic disorder INFECTIOUS HISTORY Gonorrhea: No Genital Herpes: No Chlamydia: No Tuberculosis: No Syphilis: No Hepatitis: No HIV/AIDS Exposure: No Rash or Viral Illness: No HPV: No PHYSICAL EXAM General: Normal HEENT: Deferred Neurologic: Normal Thyroid: Deferred Heart: Normal Lungs: Normal Breast: Deferred Back: Deferred Abdomen: Normal Genitourinary Exam: Normal Extremities: Normal DTRs: Deferred Pelvic Type: Adequate Physical Exam Comments: cervix 2 cm per RN Vital Signs: Reviewed VAGINAL EXAM Dilatation: 2 MEMBRANES Membranes: Ruptured Amniotic Fluid Color: Meconium, Heavy FETUS A EGA: 39.0 Monitoring: External US FHR Category: Category II Presentation: Vertex Admit Comment: , 39.0 presents with SROM, large amount was POLY with MARIBEL 29 on 10/27/19, GDMA1 Hx Gest thrombocytopenia GBS neg PLANS FOR LABOR AND DELIVERY Labor and Delivery: None Pain Management: Natural Feeding Preference: Breast Benefit of Breast Feed Discussed: Yes Circumcision: Yes INFORMED CONSENT Assignment: Sammie Garcia MD Signature: with User ID: Giuliana : with User ID: [email or web address]
[2019-11-02 11:04] LABS: ABSOLUTE EOSINOPHILS # (AUTO) 0.1 10^3/uL (0.0-0.6); ABSOLUTE LYMPHOCYTES (AUTO) 1.5 10^3/uL (0.5-4.7); ABSOLUTE MONOCYTES (AUTO) 0.7 10^3/uL (0.1-1.4); ABSOLUTE NEUT (AUTO) 4.7 10^3/uL (1.7-8.2); BASOPHILS % (AUTO) 0.6 % (0-2); EOSINOPHILS % (AUTO) 1.4 % (0-6); HEMATOCRIT 38.1 % (36.0-47.0); HEMOGLOBIN 12.9 g/dL (12.0-15.5); MEAN CORPUSCULAR HEMOGLOBIN 29.2 pg (27.0-33.4); MEAN CORPUSCULAR HGB CONC 33.7 g/dL (32.0-36.0); MEAN CORPUSCULAR VOLUME 87 fl (80-97); MONOCYTES % (AUTO) 10.3 % (3-13); PLATELET COUNT 115 10^3/uL (150-450); RED BLOOD COUNT 4.41 10^6/uL (3.72-5.28); RED CELL DISTRIBUTION WIDTH 22.3 % (11.5-14.0); SEGMENTED NEUTROPHILS % (AUTO) 66.7 % (42-78); TOTAL CELLS COUNTED % (AUTO) 100 %; WHITE BLOOD COUNT 7.1 10^3/uL (4.0-10.5)
[2019-11-02] MEDS ORDERED: NALBUPHINE HCL INJ 10 MG/1 ML AMPULE INJ ONE (11:53)
[2019-11-02] MEDS ORDERED: NALBUPHINE HCL INJ 10 MG/1 ML AMPULE ONE (11:53)
[2019-11-02] MEDS ORDERED: EPHEDRINE SULFATE INJ 50 MG/1 ML AMPULE ONE (14:46)
[2019-11-02] MEDS ORDERED: ROPIVACAINE HCL 0.2% INJ/PF (2 MG/ML) 20 ML SDV ONE (14:47)
[2019-11-02] MEDS ORDERED: FENTANYL/BUPIVACAINE/NS/PF 0 MCG/0 ML RTUINJ EPI ONE (14:47)
[2019-11-02 15:14] LABS: ANION GAP 5 (5-19); BLOOD UREA NITROGEN 10 mg/dL (7-20); CALCIUM 8.7 mg/dL (8.4-10.2); CARBON DIOXIDE 23 mmol/L (22-30); CHLORIDE 105 mmol/L (98-107); GLUCOSE 95 mg/dL (75-110)
[2019-11-02 15:53] LABS: ABSOLUTE LYMPHOCYTES (AUTO) 1.1 10^3/uL (0.5-4.7); ABSOLUTE MONOCYTES (AUTO) 0.7 10^3/uL (0.1-1.4); ABSOLUTE NEUT (AUTO) 8.6 10^3/uL (1.7-8.2); BASOPHILS % (AUTO) 0.4 % (0-2); EOSINOPHILS % (AUTO) 0.3 % (0-6); HEMATOCRIT 39.8 % (36.0-47.0); HEMOGLOBIN 13.2 g/dL (12.0-15.5); LYMPHOCYTES % (AUTO) 10.9 % (13-45); MEAN CORPUSCULAR HGB CONC 33.1 g/dL (32.0-36.0); MEAN CORPUSCULAR VOLUME 88 fl (80-97); MONOCYTES % (AUTO) 6.8 % (3-13); PLATELET COUNT 107 10^3/uL (150-450); RED BLOOD COUNT 4.54 10^6/uL (3.72-5.28); RED CELL DISTRIBUTION WIDTH 22.3 % (11.5-14.0); SEGMENTED NEUTROPHILS % (AUTO) 81.6 % (42-78); TOTAL CELLS COUNTED % (AUTO) 100 %; WHITE BLOOD COUNT 10.5 10^3/uL (4.0-10.5)
[2019-11-02] MEDS ORDERED: FENTANYL CITRATE INJ/PF 100 MCG/2 ML AMPUL ONE (15:59)
[2019-11-02] MEDS ORDERED: OXYTOCIN 10 UNIT/ML VIAL ONE (16:16)
[2019-11-02] MEDS ORDERED: MISOPROSTOL 0.2 MG TABLET ONE (16:16)
[2019-11-02] MEDS ORDERED: LIDOCAINE 1% INJ-PF (10 MG/ML) 30 ML SDV ONE (16:17)
[2019-11-02] MEDS ORDERED: OXYTOCIN/0.9 % SODIUM CHLORIDE 30 UNIT/500 ML RTUINJ ONE (16:17)
[2019-11-02] MEDS ORDERED: PROMETHAZINE HCL 25 MG SUPP.RECT PR PRN (16:31)
[2019-11-02] MEDS ORDERED: ZOLPIDEM TARTRATE 5 MG TABLET PO PRN (16:31)
[2019-11-02] MEDS ORDERED: PROMETHAZINE HCL 25 MG TABLET PO PRN (16:31)
[2019-11-02] MEDS ORDERED: PSEUDOEPHEDRINE HCL 30 MG TABLET PO PRN (16:31)
[2019-11-02] MEDS ORDERED: DIPHENHYDRAMINE HCL 25 MG CAPSULE PO PRN (16:31)
[2019-11-02] MEDS ORDERED: MEASLES,MUMPS&RUBELLA VACC/PF 0.5 ML VIAL SUBCUT PRN (16:31)
[2019-11-02] MEDS ORDERED: ACETAMINOPHEN WITH CODEINE #3 TABLET PO PRN (16:31)
[2019-11-02] MEDS ORDERED: PROMETHAZINE HCL INJ 25 MG/1 ML VIAL IV PRN (16:31)
[2019-11-02] MEDS ORDERED: DIPH/PERTUSS(ACELL)/TETANUS VAC/PF 0.5 ML SYR (>=10YO) IM PRN (16:31)
[2019-11-02] MEDS ORDERED: NA PHOS,M-B/NA PHOS,DI-BA (ADULT) 133 ML ENEMA PR PRN (16:31)
[2019-11-02] MEDS ORDERED: MAGNESIUM HYDROXIDE SUSP 30 ML UDCUP PO PRN (16:31)
[2019-11-02] MEDS ORDERED: GLYCERIN/WITCH HAZEL LEAF 1 EACH MED..WIPE TP PRN (16:31)
[2019-11-02] MEDS ORDERED: BENZOCAINE/MENTHOL AEROSOL SPRAY 56 ML TOP PRN (16:31)
[2019-11-02] MEDS ORDERED: OXYTOCIN/0.9 % SODIUM CHLORIDE 30 UNIT/500 ML RTUINJ IV PRN (16:31)
[2019-11-02] MEDS ORDERED: ACETAMINOPHEN 325 MG TABLET PO PRN (16:31)
[2019-11-02] MEDS ORDERED: DIBUCAINE 1% OINTMENT 28 GM TP PRN (16:31)
[2019-11-02] MEDS ORDERED: IBUPROFEN 800 MG TABLET ONE (17:05)
[2019-11-02] MEDS ORDERED: BENZOCAINE/MENTHOL AEROSOL SPRAY 56 ML ONE (17:05)
--- NOTE | 2019-11-02 17:23 | Delivery Summary ---
Del Sum A-C Datetime Report Generated by CPN: 11/02/2019 17:22 DELIVERY PERSONNEL DELIVERY PERSONNEL: [id number] Delivery Doctor:: Sammie Garcia MD Nurse Transcription Typist Certified:: Scarlett Jeronimo CNM Labor and Delivery Nurse:: Sondra Naik RNchurch warden Nurse:: Pineda anthony RN Nursery Nurse:: Lakisha Coffey RN Content Assistant/STONE OPERATOR: Isabella Madrid, TESTER WASTE DISPOSAL LEAKAGE MATERNAL INFORMATION Delivery Anesthesia: None Medications After Delivery: Pitocin 30 Units in 500ml NS/D5W Delivery QBL: 700 Maternal Complications: None Provider Comments: SVDVM, JAQUELINE with turtle sign, Dr. Garcia called to delivery room. Bed flattened, João and suprapubic pressure, attempted to rotate ant shoulder, attempted to delivery posterior shoulder, then Dr. Garcia in room. Suprapubic pressure again with downward traction, delivered, cord clamped x2 and cut by FOB. Infant handed off to Nursery staff for NRP. Apgars 8,9. LABOR SUMMARY EDC: 11/09/2019 00:00 No. Babies in Womb: 1 Attempted: No Labor Anesthesia: None LABOR INFORMATION Reason for Induction: Not Applicable Onset of Labor: 11/02/2019 08:00 Complete Dilatation: 11/02/2019 16:23 Group B Beta Strep: 1 NO GROUP B STREPTOCOCCUS RECOVERED Steroids Given: None Reason Steroids Not Administered: Not Applicable MEMBRANES Membranes Rupture Method: Spontaneous Rupture of Membranes: 11/02/2019 08:00 Length of Rupture (hr): 8.55 Amniotic Fluid Color: Light Meconium Amniotic Fluid Amount: Scant Amniotic Fluid Odor: None STAGES OF LABOR Stage 1 hr: 8 Stage 1 min: 23 Stage 2 hr: 0 Stage 2 min: 10 Stage 3 hr: 0 Stage 3 min: 7 Total Time in Labor hr: 8 Total Time in Labor min: 40 VAGINAL DELIVERY Episiotomy: None Laceration #1: Perineal Laceration Extension #1: Second Degree Laceration Repair: Yes Laceration Repair Note: 3.0 vicryl for repair, lidocaine used BABY A INFORMATION Delivery Date/Time: 11/02/2019 16:33 Method of Delivery: Vaginal Nurse Controlled Delivery: No Born in Route : No : N/A Forceps: N/A Vacuum Extraction: N/A Shoulder Dystocia : Yes SHOULDER DYSTOCIA BABY A Delivery of Head: 11/02/2019 16:32 Time Head to Delivery : 1.0 1st Intervention to Resolve: Gentle Attempt at Traction, Assisted by Maternal Expulsive Efforts 2nd Intervention to Resolve: McRobert's Maneuver 3rd Intervention to Resolve: Suprapubic Pressure Verify NO Fundal Pressure: No Fundal Pressure Applied Arm Under Symphisis at Del: Right PRESENTATION/POSITION BABY A Presentation: Cephalic Cephalic Presentation: Vertex Vertex Position: Left Occipital Anterior Breech Presentation: N/A PLACENTA INFORMATION BABY A Placenta Delivery Time : 11/02/2019 16:40 Placenta Method of Delivery: Manual Removal Placenta Status: Delivered SCORES BABY A Heart Rate 1 min: >100 bpm Resp Effort 1 min: Good Cry Reflex Irritability 1 min: Cough or Sneeze or Pulls Away Muscle Tone 1 min: Active Motion Color 1 min: Blue/Pale Resuscitation Effort 1 min: Tactile Stimulation SCORE 1 MIN: 8 Heart Rate 5 min: >100 bpm Resp Effort 5 min: Good Cry Reflex Irritability 5 min: Cough or Sneeze or Pulls Away Muscle Tone 5 min: Active Motion Color 5 min: Body [place], Extremities Blue Resuscitation Effort 5 min: N/A SCORE 5 MIN: 9 INFORMATION BABY A Gestational Age at Delivery: 39.0 Gestational Status: Full Term- 39- 40.6 Weeks Outcome : Liveborn Infant Condition : Stable Sex: Male IDENTIFICATION BABY A Infant Verification Date/Time: 11/02/2019 17:19 ID Band Number: [id number] Mother's Name Verified: Yes Infant RN Verifying Infant: Pineda AnthonyGREGORIO Additional Verifying Personnel: Joel Naik RN CORD INFORMATION BABY A No. Cord Vessels: 3 Nuchal Cord : N/A Cord Blood Taken: Yes-For Storage (Mom's Blood type +) ASSESSMENT BABY A Skin to Skin: Yes BABY B INFORMATION : N/A SIGNATURES Assignment: Sammie Garcia MD Signature: with User ID: [email or web address] : with User ID: [email or web address] : I was personally available for consultation and serving as supervising physician for the P.
[2019-11-02] MEDS: IBUPROFEN 800 MG TABLET PO SCH (22:12)
[2019-11-02] MEDS: FAMOTIDINE 20 MG TABLET PO SCH (22:13)
[2019-11-03] MEDS: IBUPROFEN 800 MG TABLET PO SCH ×3 (06:11→22:48)
[2019-11-03 08:28] LABS: HEMATOCRIT 35.1 % (36.0-47.0); HEMOGLOBIN 11.7 g/dL (12.0-15.5); MEAN CORPUSCULAR HEMOGLOBIN 29.1 pg (27.0-33.4); MEAN CORPUSCULAR HGB CONC 33.3 g/dL (32.0-36.0); MEAN CORPUSCULAR VOLUME 87 fl (80-97); PLATELET COUNT 121 10^3/uL (150-450); RED BLOOD COUNT 4.02 10^6/uL (3.72-5.28); RED CELL DISTRIBUTION WIDTH 22.2 % (11.5-14.0); WHITE BLOOD COUNT 12.6 10^3/uL (4.0-10.5)
[2019-11-03] MEDS: ACETAMINOPHEN WITH CODEINE #3 TABLET PO PRN (09:48)
[2019-11-03] MEDS: SENNOSIDES/DOCUSATE 8.6-50 MG 1 EACH TABLET PO SCH (09:49)
[2019-11-03] MEDS: PRENATAL VITAMIN W DHA CAPSULE PO SCH (09:49)
[2019-11-03] MEDS: FERROUS SULFATE 325 MG TABLET PO SCH ×3 (09:49→18:10)
[2019-11-03] MEDS: DOCUSATE SODIUM 100 MG CAPSULE PO SCH ×3 (09:49→18:10)
--- NOTE | 2019-11-03 11:16 | PDOC PROGRESS REPORT ---
Subjective-OB Progress Note for:: 11/03/19 Subjective: holding baby, no c/o, , eating and drinking well, voiding Physical Exam (OB) Vital Signs: Temp Pulse Resp BP Pulse Ox 97.6 F 90 16 100/62 99 11/03/19 08:21 11/03/19 08:21 11/03/19 08:21 11/03/19 08:21 11/03/19 08:21 Intake & Output 11/02/19 11/03/19 11/04/19 06:59 06:59 06:59 Output Total 300 Balance -300 Weight 79.6 kg - Lochia Lochia Amount: Moderate 25-50 ml Lochia Color: Rubra/Red - Abdomen Description: Soft Hernia Present: No Fundal Description: Firm, Boggy, Midline, Non-Midline Describe if Not Midline: see note Fundal Height: u/u - u/2 Objective-Diagnostic Laboratory: 11/03/19 08:00 11/02/19 10:29 11/02/19 11/02/19 11/02/19 10:29 10:29 10:29 WBC 7.1 RBC 4.41 Hgb 12.9 Hct 38.1 MCV 87 MCH 29.2 MCHC 33.7 RDW 22.3 H Plt Count 115 L Seg Neutrophils % 66.7 Sodium 132.7 L Potassium 4.0 Chloride 105 Carbon Dioxide 23 Anion Gap 5 BUN 10 Creatinine 0.48 L Est GFR ( Amer) > 60 Glucose 95 Calcium 8.7 Blood Type A POSITIVE Antibody Screen NEGATIVE 11/02/19 11/03/19 15:42 08:00 WBC 10.5 12.6 H RBC 4.54 4.02 Hgb 13.2 11.7 L Hct 39.8 35.1 L MCV 88 87 MCH 29.0 29.1 MCHC 33.1 33.3 RDW 22.3 H 22.2 H Plt Count 107 L 121 L Seg Neutrophils % 81.6 H Sodium Potassium Chloride Carbon Dioxide Anion Gap BUN Creatinine Est GFR ( Amer) Glucose Calcium Blood Type Antibody Screen Assessment and Plan(PN) - Assessment and Plan (1) Shoulder (girdle) dystocia during labor and deliver, delivered Is this a current diagnosis for this admission?: Yes (2) Gestational thrombocytopenia Qualifiers: Trimester: first trimester Qualified Code(s): O99.111 - Other diseases of the blood and blood-forming organs and certain disorders involving the immune mechanism complicating , first trimester; D69.6 - Thrombocytopenia, un specified Is this a current diagnosis for this admission?: Yes (3) Spontaneous rupture of membranes Is this a current diagnosis for this admission?: Yes (4) Polyhydramnios affecting Is this a current diagnosis for this admission?: Yes - Time Spent with Patient Time with patient: Less than 15 minutes Medications reviewed and adjusted accordingly: Yes - Disposition Anticipated Discharge Disposition: Home, Self Care Anticipated Discharge Timeframe: within 24 hours
[2019-11-03] MEDS: FAMOTIDINE 20 MG TABLET PO SCH ×2 (12:15→22:48)
[2019-11-03] MEDS ORDERED: FAMOTIDINE 20 MG TABLET ONE (22:06)
[2019-11-04] MEDS: IBUPROFEN 800 MG TABLET PO SCH ×2 (05:30→14:29)
[2019-11-04] MEDS: DOCUSATE SODIUM 100 MG CAPSULE PO SCH (09:46)
[2019-11-04] MEDS: ACETAMINOPHEN WITH CODEINE #3 TABLET PO PRN (09:46)
[2019-11-04] MEDS: PRENATAL VITAMIN W DHA CAPSULE PO SCH (09:46)
[2019-11-04] MEDS: SENNOSIDES/DOCUSATE 8.6-50 MG 1 EACH TABLET PO SCH (09:46)
[2019-11-04] MEDS: FERROUS SULFATE 325 MG TABLET PO SCH (09:46)
[2019-11-04] MEDS: FAMOTIDINE 20 MG TABLET PO SCH (09:47)
[2019-11-04 11:24] VITALS: BP 106/62
--- NOTE | 2019-11-04 13:29 | PDOC DISCHARGE SUMMARY ---
Impression - Admit/DC Date/PCP Admission Date/Primary Care Provider: 11/02/19 10:00 GINGER MALDONADO CNM Discharge Date: 11/04/19 - Discharge Diagnosis (1) Shoulder (girdle) dystocia during labor and deliver, delivered Is this a current diagnosis for this admission?: Yes (2) Gestational thrombocytopenia Is this a current diagnosis for this admission?: Yes (3) Spontaneous rupture of membranes Is this a current diagnosis for this admission?: Yes (4) Polyhydramnios affecting Is this a current diagnosis for this admission?: Yes (5) Perineal laceration, second degree, delivered Is this a current diagnosis for this admission?: Yes - Assessment Summary: 28yo G3 now P3 s/p ppd2 stable and ready for discharge, understands warning s/s and when to rtc/[facility] - Additional Information Resuscitation Status: Full Code Discharge Diet: Regular Discharge Activity: Activity As Tolerated, No Lifting Over 10 Pounds, No Lifting/Push/Pulling, No tub bath Referrals: [facility] [Provider Group] (Please call [facility] for a 4 week F/U.) Prescriptions: Ibuprofen [Motrin 800 mg Tablet] 800 mg PO Q8HP PRN #20 tablet PRN Reason: Abdominal Cramping Home Medications: Prenat 115/Iron Fum/Folic/Dss [ 19 Tablet] 1 tab PO DAILY 09/30/19 Ibuprofen [Motrin 800 mg Tablet] 800 mg PO Q8HP PRN #20 tablet 11/04/19 Results Laboratory Results: WBC 12.6 10^3/uL (4.0-10.5) H 11/03/19 08:00 RBC 4.02 10^6/uL (3.72-5.28) 11/03/19 08:00 Hgb 11.7 g/dL (12.0-15.5) L 11/03/19 08:00 Hct 35.1 % (36.0-47.0) L 11/03/19 08:00 MCV 87 fl (80-97) 11/03/19 08:00 MCH 29.1 pg (27.0-33.4) 11/03/19 08:00 MCHC 33.3 g/dL (32.0-36.0) 11/03/19 08:00 RDW 22.2 % (11.5-14.0) H 11/03/19 08:00 Plt Count 121 10^3/uL (150-450) L 11/03/19 08:00 Lymph % (Auto) 10.9 % (13-45) L 11/02/19 15:42 [place] % (Auto) 6.8 % (3-13) 11/02/19 15:42 Eos % (Auto) 0.3 % (0-6) 11/02/19 15:42 Baso % (Auto) 0.4 % (0-2) 11/02/19 15:42 Absolute Neuts (auto) 8.6 10^3/uL (1.7-8.2) H 11/02/19 15:42 Absolute Lymphs (auto) 1.1 10^3/uL (0.5-4.7) 11/02/19 15:42 Absolute Monos (auto) 0.7 10^3/uL (0.1-1.4) 11/02/19 15:42 Absolute Eos (auto) 0.0 10^3/uL (0.0-0.6) 11/02/19 15:42 Absolute Basos (auto) 0.0 10^3/uL (0.0-0.2) 11/02/19 15:42 Seg Neutrophils % 81.6 % (42-78) H 11/02/19 15:42 Sodium 132.7 mmol/L (137-145) L 11/02/19 10:29 Potassium 4.0 mmol/L (3.6-5.0) 11/02/19 10:29 Chloride 105 mmol/L (98-107) 11/02/19 10:29 Carbon Dioxide 23 mmol/L (22-30) 11/02/19 10:29 Anion Gap 5 (5-19) 11/02/19 10:29 BUN 10 mg/dL (7-20) 11/02/19 10:29 Creatinine 0.48 mg/dL (0.52-1.25) L 11/02/19 10:29 Est GFR ( Amer) > 60 (>60) 11/02/19 10:29 Est GFR (MDRD) Non-Af > 60 (>60) 11/02/19 10:29 Glucose 95 mg/dL (75-110) 11/02/19 10:29 Calcium 8.7 mg/dL (8.4-10.2) 11/02/19 10:29 Urine Color YELLOW 11/02/19 09:24 Urine Appearance CLEAR 11/02/19 09:24 Urine pH 7.0 (5.0-9.0) 11/02/19 09:24 Ur Specific [place] 1.009 11/02/19 09:24 Urine Protein NEGATIVE mg/dL (NEGATIVE) 11/02/19 09:24 Urine Glucose (UA) NEGATIVE mg/dL (NEGATIVE) 11/02/19 09:24 Urine Ketones NEGATIVE mg/dL (NEGATIVE) 11/02/19 09:24 Urine Blood SMALL (NEGATIVE) H 11/02/19 09:24 Urine Nitrite NEGATIVE (NEGATIVE) 11/02/19 09:24 Urine Bilirubin NEGATIVE (NEGATIVE) 11/02/19 09:24 Urine Urobilinogen 2.0 mg/dL (<2.0) H 11/02/19 09:24 Ur Leukocyte Esterase NEGATIVE (NEGATIVE) 11/02/19 09:24 Urine Ascorbic Acid NEGATIVE (NEGATIVE) 11/02/19 09:24 Membranes Rupture POSITIVE (NEGATIVE) H 11/02/19 09:24 Urine Opiates Screen NEGATIVE 11/02/19 09:24 Urine Methadone Screen NEGATIVE 11/02/19 09:24 Ur Barbiturates Screen NEGATIVE 11/02/19 09:24 Ur Phencyclidine Scrn NEGATIVE 11/02/19 09:24 Ur Amphetamines Screen NEGATIVE 11/02/19 09:24 U Benzodiazepines Scrn NEGATIVE 11/02/19 09:24 Urine Cocaine Screen NEGATIVE 11/02/19 09:24 U Marijuana (THC) Screen NEGATIVE 11/02/19 09:24 RPR NONREACTIVE (NONREACTIVE) 11/02/19 10:29 Blood Type A POSITIVE 11/02/19 10:29 Antibody Screen NEGATIVE 11/02/19 10:29
== END 2019-11-04 14:50 | disposition home or self-care (01) | DRG 806 ==
LOC: LC 09:07 → LR 10:00 → 2S 18:55
PROVIDERS: ADMIT Obstetrics & Gynecology; ATTEND Obstetrics & Gynecology
PROC: 10E0XZZ Delivery of Products of Conception, External Approach (ICD-10-PCS; principal; 2019-11-02)
PROC: 0HQ9XZZ Repair Perineum Skin, External Approach (ICD-10-PCS; 2019-11-02)
DX: O40.3XX0 Polyhydramnios, third trimester, not applicable or unspecified (principal); O99.12 Other diseases of the blood and blood-forming organs and certain disorders involving the immune mechanism complicating childbirth; Z37.0 Single live birth; O77.0 Labor and delivery complicated by meconium in amniotic fluid; O70.0 First degree perineal laceration during delivery; D69.6 Thrombocytopenia, unspecified; Z3A.39 39 weeks gestation of pregnancy
CPT/HCPCS: 36415; 80048; 80307; 81005; 84112; 85025; 85027; 86592; 86850; 86900; 86901; 88307; J2300; J2590; J2795; J3010; J3490